=== PATIENT | male | born 1945 | race Caucasian/White ===

== ENCOUNTER 2018-08-28 10:37 | Observation (INO) ==
[2018-08-28 10:59] LABS: Basophils # 0.1 K/mm3 (0-0.2); Basophils % 0.7 % (0.1-2.0); Eosinophils # 0.1 K/mm3 (0.0-0.4); Eosinophils % 1.5 % (0.1-12.0); Hematocrit 50.2 % (42.0-52.0); Lymphocytes # 2.2 K/mm3 (0.7-4.5); Lymphocytes % 23.8 % (10-50); Mean Corpuscular HGB Conc 31.8 g/dL (31.8-35.4); Mean Corpuscular Hemoglobin 29.5 pg (27.0-31.2); Mean Corpuscular Volume 92.8 fl (80-94); Mean Platelet Volume 10.5 fl (7.4-10.4); Monocytes # 0.5 K/mm3 (0.1-1.0); Neutrophils # 6.2 K/mm3 (1.8-7.8); Neutrophils % 68.8 % (37.0-80.0); Platelet Count 222 K/mm3 (142-424); Red Blood Count 5.41 M/mm3 (4.60-6.20); Red Cell Distribution Width 12.7 % (11.5-17.5)
--- NOTE | 2018-08-28 11:08 | Emergency Department Note ---
ED Disposition Clinical Impression: Acute non-ST elevation myocardial infarction (NSTEMI), Infiltrate of lung present on chest x-ray, Hyponatremia, Hypochloremia, Elevated d-dimer, Acute renal insufficiency Chest pain Qualifiers: Chest pain type: unspecified Qualified Code(s): R07.9 - Chest pain, unspecified Type 2 diabetes mellitus with hyperglycemia Qualifiers: Diabetes mellitus intermediate card tender insulin use: without intermediate card tender use Qualified Code(s): E11.65 - Type 2 diabetes mellitus with hyperglycemia Disposition: Admitted As Inpatient Condition on Discharge: Serious (Stable) Referrals: Jarek Abad MD [Primary Care Provider] - Time of Disposition: 14:37 - Critical Care Critical Care Time: No Attestation: On 08/28/18, the high probability of a clinically significant, sudden or life threatening deterioration of the following system(s) required my full and direct attention, intervention and personal management. The time I documented below is in addition to time spent performing reported procedures but includes the following listed in this critical care notation. Medical Decision Making - Chris Inquiry Pt receiving controlled substance: No Chris was queried for this patient: No Vital Signs: 08/28/18 10:39 08/28/18 10:49 08/28/18 11:39 Temperature 98.2 F 98.2 F 98.2 F Temperature Source Oral Oral Oral Pulse Rate [Left Radial] 111 H 111 H 108 H Respiratory Rate 22 22 21 Blood Pressure [Right Arm] 126/77 126/77 125/80 Blood Pressure Mean [Right Arm] 93 93 95 Blood Pressure Source [Right Arm] Automatic Cuff Automatic Cuff Automatic Cuff Blood Pressure Position [Right Arm] Sitting Sitting Sitting 02 Sat by Pulse Oximetry 94 L 94 L 95 Oxygen Delivery Method Room Air Room Air Room Air 08/28/18 12:09 08/28/18 12:39 08/28/18 13:09 Temperature 98.3 F 98.2 F 98.3 F Temperature Source Oral Oral Oral Pulse Rate [Left Radial] 110 H 100 H 82 Respiratory Rate 22 20 21 Blood Pressure [Right Arm] 130/82 125/78 127/83 Blood Pressure Mean [Right Arm] 98 93 97 Blood Pressure Source [Right Arm] Automatic Cuff Automatic Cuff Automatic Cuff Blood Pressure Position [Right Arm] Sitting Sitting Sitting 02 Sat by Pulse Oximetry 95 94 L 95 Oxygen Delivery Method Room Air Room Air Room Air - Lab Data Lab results reviewed: Yes: I reviewed the patient's lab results. Lab Results 08/28/18 10:47: WBC 9.0, RBC 5.41, Hgb 16.0, Hct 50.2, MCV 92.8, MCH 29.5, MCHC 31.8, RDW 12.7, Plt Count 222, MPV 10.5 H, Neut % (Auto) 68.8, Lymph % (Auto) 23.8, [place] % (Auto) 5.0, Eos % (Auto) 1.5, Baso % (Auto) 0.7, Neut # (Auto) 6.2, Lymph # (Auto) 2.2, [place] # (Auto) 0.5, Eos # (Auto) 0.1, Baso # (Auto) 0.1 08/28/18 10:47: Sodium 124 L, Potassium 4.3, Chloride 87 L, Carbon Dioxide 23, Anion Gap 18.3 H, BUN 45 H, Creatinine 2.73 H, Estimated Creat Clear 38, Estimated GFR 23 L, Est GFR ( Amer) 28 L, Glucose 707 H*, Calcium 9.3, Total Bilirubin 0.9, AST 11 L, ALT 25, Alkaline Phosphatase 141 H, Troponin I < 0.02, Total Protein 8.2, Albumin 3.4, Globulin 4.8 H, Albumin/Globulin Ratio 0.7 L 08/28/18 10:47: Total Creatine Kinase 3.4 L, Amylase 39 08/28/18 10:47: D-Dimer 641 H* 08/28/18 10:47: Magnesium 2.2, CK-MB (CK-2) 1.3, Lipase 351, TSH 5.33 H 08/28/18 10:47: B-Natriuretic Peptide 39 08/28/18 10:47: Acetone Level None detected 08/28/18 12:55: Troponin I 0.14 H 08/28/18 13:15: Urine Color Yellow, Urine Appearance Clear, Urine pH 5.5, Ur Specific [place] 1.015, Urine Protein 1+, Urine Glucose (UA) 3+, Urine Ketones Trace, Urine Blood Negative, Urine Nitrate Negative, Urine Bilirubin Negative, Urine Urobilinogen 0.2, Ur Leukocyte Esterase Negative, Urine RBC 3-5, Urine WBC Occasional, Ur Squamous Epith Cells None, Urine Bacteria Trace 08/28/18 13:47: POC Glucose 579 H* 08/28/18 14:10: Random Glucose 569 H* Result diagrams: 08/28/18 10:47 08/28/18 10:47 Orders (Tests/Meds): ED MEDICATIONS Generic Name Dose Route Start Last Admin Trade Name Freq PRN Reason Stop Dose Admin Nitroglycerin/Dextrose 250 mls @ 1.5 mls/hr 08/28/18 14:15 08/28/18 14:45 Nitroglycerin 50mg/250ml D5w IV 09/27/18 14:14 5 mcg/min .Q24H NEDA 1.5 mls/hr Administration Protocol 5 MCG/MIN Heparin Sodium/Dextrose 500 mls @ 20 mls/hr 08/28/18 15:00 Heparin 25,000 Units In D5w 500ml Premix IV 09/27/18 14:59 .Q25H NEDA 1,000 UNITS/HR Metoprolol Tartrate 25 mg 08/28/18 21:00 Lopressor 25mg Tablet PO 09/27/18 20:59 BID NEDA Discontinued Medications Generic Name Dose Route Start Last Admin Trade Name Juveq PRN Reason Stop Dose Admin Aspirin 324 mg 08/28/18 10:50 08/28/18 10:54 Aspirin 81mg Chewable Tablet PO 08/28/18 10:51 324 mg ONCE ONE Administration Heparin Sodium (Porcine) 4,000 unit 08/28/18 14:50 Heparin 1,000 Units/Ml 10ml Vial (Director Home) IV 08/28/18 14:51 ONCE ONE Sodium Chloride 500 mls @ 999 mls/hr 08/28/18 11:15 08/28/18 11:21 Sod Chlor 0.9% 1000ml Bag IV 08/28/18 11:45 999 mls/hr .Q31M NEDA Administration Insulin Human Lispro 14 unit 08/28/18 11:23 08/28/18 11:29 Humalog 100 Units/Ml 3ml Vial (Ssi) IV 08/28/18 11:24 14 unit ONCE ONE Administration Insulin Human Regular 14 unit 08/28/18 14:37 Humulin R Insulin 100 Units/Ml 10ml Vial IVP 08/28/18 14:38 ONCE ONE Metoprolol Tartrate 5 mg 08/28/18 14:09 08/28/18 14:45 Metoprolol Tartrate 5mg/5ml Vial IV 08/28/18 14:10 5 mg ONCE ONE Administration Nitroglycerin 1 gm 08/28/18 11:02 08/28/18 11:21 Nitroglycerin 1 Inch Oint Udp TD 08/28/18 11:03 1 gm ONCE ONE Administration ORDERS Category Date Time Status Urinalysis-Acute [Urinalysis and Microscopic] Stat Lab 08/28/18 13:15 Ordered - ECG Data Tracing #1 I reviewed this ECG and interpreted as documented below: (EKG #1 at 10:37 showed sinus rhythm with 1st degree block, LAFB, inferior and possible anterolateral infarct changes (age undetermined) at rate of 99 BPM. EKG #2 at 14:20 showed sinus rhythm with 1st degree AV block and occasional PAC at 94 BPM.) Medical Decision Narrative: 15:15 Pt initially evaluated. EKG, PCXR and cardiac labs ordered. PCXR showed a possible posterior infiltrate. EKG showed no acute ST elevation. Pt placed on O2, given 4 ASA 81 mg PO and NTG 1" to ACW started. 14 units regular insulin ordered for elevated glucose >700 mg/dl. Pt subsequently was feeling well and pain free. All initial labs reviewed. Initial troponin normal. 2 hour troponin ordered and it was elevated at 0.14 from <0.03. 2 hour EKG also ordered. I discussed case with GERA Gardner with cardiology and they are evaluating pt in ER now. Pt case will be discussed with Dr. Mccormick as pt is no longer seeing his old PCP and has a new pt PCP appointment with another physician scheduled in the future. Pt's 2nd glucose also up so I ordered another 14 units of regular insulin. Cardiology agreed with NTG IV drip and Heparin. They did not want pt to receive Plavix. I also ordered Lopressor 5 mg IVP. Just prior to discussing elevated 2nd troponin with pt, and reassessing him, he had the nurse take him off the registered nurse cardiac telemetry and he was wanting to go home. I explained that he had a heart attack this morning, and now that he was having reoccurrence of his pain, that his AL may be progressing. I told him that I recommended he stay and be admitted for further care, or he could suffer from worsening of condition, short and/or detention disability and possibly sudden if he left. Pt has now decided to stay for treatment. Dr. Mccormick contacted and I await discussing case with him. 14:33 Case discussed with Suzanne Andrade NP for Dr. Mccormick and they will admit pt to step down unit. Chest Pain HPI - General Chief Complaint: Chest Pain Stated Complaint: Chest Pain Time Seen by Provider: 08/28/18 10:45 Mode of Arrival: Ambulatory Source of Information: Patient Limitations: No Limitations Description of Symptoms (Recalled from ER Triage Doc. by RN): Pt c/o intermitent CP x2 days that began radiating down right arm today. Pt states he has had a decrease in appetite x2 days and just doesn't feel well. Pt c/o associated SOA. - History of Present Illness HPI narrative: Pt is here in the ER for evaluation c/o chest pain. Onset 3 days ago. Pt states the pain has been coming and going. Pain is primarily right lower chest. Pain is a dull feeling. Pt states pain usually lasts about an hour and then goes away with rest. Pt has felt some SOB with the chest discomfort. No nausea or vomiting. No recent cough. Pt has NIDDM and his glucose was "high" 2 days ago. Pt also c/o feeling tired and fatigued today. No history of CAD. Last stress test over 3 years ago. No other complaints. - Related Data Home Medications Medication Instructions Recorded Confirmed Unobtainable 08/28/18 08/28/18 Allergies Allergy/AdvReac Type Severity Reaction Status Date / Time No Known Allergies Allergy Verified 08/28/18 10:49 [facility] History I have reviewed the patient's past medical history: Yes Medical History: Reports:: Diabetes Mellitus Type 2 Denies:: Diabetes Mellitus Type 1 - Social History Smoking Status: Current every day smoker Tobacco Type: cigarettes Alcohol Intake: current Alcohol Intake Frequency:: holidays/special occasions only - Psychiatric History Expresses thoughts of harming self/others: None Suicide Plan Description: No Plan ROS Obtained: Yes All systems reviewed & no additional complaints - Constitutional Constitutional: Reports system reviewed and no additional complaints, except as docu, Reports as per HPI, Reports fatigue (Onset yesterday.) - Eyes Eyes: Reports system reviewed and no additional complaints, except as docu - ENT Ears, Nose, Mouth, and Throat: Reports system reviewed and no additional complaints, except as docu - Cardiovascular Cardiovascular: Reports system reviewed and no additional complaints, except as docu, Reports as per HPI, Reports chest pain, Reports dyspnea, Denies leg edema - Respiratory Respiratory: Yes system reviewed and no additional complaints, except as docu, Yes as per HPI, Yes dyspnea (Associated with his chest pain.) - Gastrointestinal Gastrointestingal: Reports: system reviewed and no additional complaints, except as docu - Genitourinary Male Genitourinary: Reports system reviewed and no additional complaints, except as docu - Musculoskeletal Musculoskeletal: Reports system reviewed and no additional complaints, except as docu - Integumentary/Breasts Skin/Breast: Reports system reviewed and no additional complaints, except as docu - Neurologic Neurologic: Reports system reviewed and no additional complaints, except as docu - Endocrine Endocrine: Reports system reviewed and no additional complaints, except as docu, Reports increased thirst, Reports polyuria - Hematologic/Lymphatic Henatologic/Lymphatic: Reports system reviewed and no additional complaints, except as docu - Allergic/Immunologic Allergic/Immunologic: Reports system reviewed and no additional complaints, except as docu Physical Exam - General General appearance: alert, in no apparent distress - Head Head exam: atraumatic, normocephalic, normal inspection - Eye Eye exam: Present: PERRL, EOMI - ENT ENT exam: Present: mucous membranes moist, other (No otic or nasal discharge.) - Neck Neck exam: Present: trachea midline - Chest Chest inspection: Present: normal inspection, symmetric chest wall rise, tenderness ((+) mild right lower ACW discomfort on palpation.) - Respiratory Respiratory exam: Present: normal lung sounds bilaterally. Absent: respiratory distress, wheezes - Cardiovascular Cardiovascular exam: Present: tachycardia, normal heart sounds - Abdominal Exam Abdominal exam: Present: soft. Absent: distention, tenderness, guarding, rebound, rigidity, Dockery's sign, tenderness at McBurney's Point - Extremities Exam Extremities exam: Present: normal inspection, full ROM - Neurological Exam Neurological exam: Present: alert, oriented X3, CN II-XII intact - Psychiatric Psychiatric exam: Present: normal affect, normal mood - Skin Skin exam: Present: warm, dry, intact. Absent: rash
[2018-08-28 11:13] LABS: Anion Gap 18.3 mEq/L (5-15); Blood Urea Nitrogen 45 mg/dL (7-18); Calcium 9.3 mg/dL (8.5-10.1); Carbon Dioxide 23 mmol/L (21.0-32.0); Chloride 87 mmol/L (98-107); Potassium 4.3 mmoL/L (3.5-5.1); Sodium 124 mmol/L (136-145)
[2018-08-28 11:15] LABS: Glucose 707 mg/dL (74-106)
[2018-08-28 11:50] LABS: Alanine Aminotransferase 25 U/L (12-78); Albumin Level 3.4 gm/dL (3.4-5.0); Albumin/Globulin Ratio 0.7 (1.1-1.8); Aspartate Amino Transferase 11 U/L (15-37); Bilirubin,Total 0.9 mg/dL (0.2-1.0); Creatine Kinase 3.4 U/L (39-308); Globulin 4.8 gm/dl (1.3-3.2); Total Protein,Serum 8.2 gm/dL (6.4-8.2)
[2018-08-28 11:51] LABS: Alkaline Phosphatase 141 U/L (46-116)
[2018-08-28 12:29] LABS: Thyroid Stimulating Hormone 5.33 uIU/ml (0.358-3.740)
[2018-08-28 13:22] LABS: Microscopic, Urine URINE MICROSCOPIC (MICROSCOPIC)
[2018-08-28 13:32] LABS: Appearance,Urine CLEAR (Clear); Bilirubin,Urine Negative (Negative); Blood, Urine Negative (Negative); Color,Urine YELLOW (Yellow); Glucose,Urine (UA) 3+ (Negative); Ketones,Urine TRACE (Negative); Leukocyte Esterase,Urine Negative (Negative); PH,Urine 5.5 (5.0-8.5); Protein,Urine 1+ (Negative); Specific Gravity, Urine 1.015 (1.005-1.030); Urobilinogen,Urine 0.2 EU/dl (0.2)
[2018-08-28 13:52] LABS: Bacteria,Urine Trace /lpf; WBC,Urine Occasional #/hpf (0-3)
--- NOTE | 2018-08-28 14:24 | Consult Report ---
History of Present Illness Consult date: 08/28/18 Requesting physician: Jarek Abad Consult reason: chest pain Chief complaint: chest pain Additional Medical History:: 1. Diabetes mellitus, diagnosed in the mid 90s, previously insulin treated, now poorly controlled A. History of proteinuria 2. Tobacco use most of his life with a 15-20-year period where he did not smoke which ended about 4 years ago 3. Hypertension 4. Hyperlipidemia 5. Alopecia History of present illness: 73-year-old white male came to the emergency department for evaluation of chest pain. Patient relates discomfort off and on for about 3 days lasting up to an hour at a time without associated nausea or shortness of breath. Workup in the ER initially showed normal troponin with no acute changes on EKG. Second troponin returned elevated with patient having recurrent episode of chest pain. Patient's blood sugars noted to be over 700 with elevated creatinine. Cardiology consulted for evaluation. [facility] History Medical History: Reports:: Diabetes Mellitus Type 2 Denies:: Diabetes Mellitus Type 1 - *Social History Smoking Status: Current every day smoker Tobacco Type: cigarettes Alcohol Intake: current Alcohol Intake Frequency:: holidays/special occasions only - Psychiatric History Expresses thoughts of harming self/others: None Suicide Plan Description: No Plan Meds Home Medications Medication Instructions Recorded Confirmed Type Unobtainable 08/28/18 08/28/18 History Allergies Allergy/AdvReac Type Severity Reaction Status Date / Time No Known Allergies Allergy Verified 08/28/18 10:49 Review of Systems - *Cardiovascular Reports chest pain, Reports shortness of breath with activity - *Respiratory Reports shortness of breath with activity - *Gastrointestinal Denies bright, red blood in stools, Denies loose stools - *Genitourinary Denies blood in urine - *Musculoskeletal Denies joint pain, Denies back pain Exam Vital signs and Labs for Last 24 Hours: Temp Pulse Resp BP Pulse Ox 98.3 F 82 21 127/83 95 08/28/18 13:09 08/28/18 13:09 08/28/18 13:09 08/28/18 13:09 08/28/18 13:09 Laboratory Results - last 24 hr 08/28/18 10:47: WBC 9.0, RBC 5.41, Hgb 16.0, Hct 50.2, MCV 92.8, MCH 29.5, MCHC 31.8, RDW 12.7, Plt Count 222, MPV 10.5 H, Neut % (Auto) 68.8, Lymph % (Auto) 23.8, [place] % (Auto) 5.0, Eos % (Auto) 1.5, Baso % (Auto) 0.7, Neut # (Auto) 6.2, Lymph # (Auto) 2.2, [place] # (Auto) 0.5, Eos # (Auto) 0.1, Baso # (Auto) 0.1 08/28/18 10:47: Sodium 124 L, Potassium 4.3, Chloride 87 L, Carbon Dioxide 23, Anion Gap 18.3 H, BUN 45 H, Creatinine 2.73 H, Estimated Creat Clear 38, Estimated GFR 23 L, Est GFR ( Amer) 28 L, Glucose 707 H*, Calcium 9.3, Total Bilirubin 0.9, AST 11 L, ALT 25, Alkaline Phosphatase 141 H, Troponin I < 0.02, Total Protein 8.2, Albumin 3.4, Globulin 4.8 H, Albumin/Globulin Ratio 0.7 L 08/28/18 10:47: Total Creatine Kinase 3.4 L, Amylase 39 08/28/18 10:47: D-Dimer 641 H* 08/28/18 10:47: Magnesium 2.2, CK-MB (CK-2) 1.3, Lipase 351, TSH 5.33 H 08/28/18 10:47: B-Natriuretic Peptide 39 08/28/18 10:47: Acetone Level None detected 08/28/18 12:55: Troponin I 0.14 H 08/28/18 13:15: Urine Color Yellow, Urine Appearance Clear, Urine pH 5.5, Ur Specific [place] 1.015, Urine Protein 1+, Urine Glucose (UA) 3+, Urine Ketones Trace, Urine Blood Negative, Urine Nitrate Negative, Urine Bilirubin Negative, Urine Urobilinogen 0.2, Ur Leukocyte Esterase Negative, Urine RBC 3-5, Urine WBC Occasional, Ur Squamous Epith Cells None, Urine Bacteria Trace 08/28/18 13:47: POC Glucose 579 H* I & O for Last 24 hours: Intake & Output 08/26/18 08/27/18 08/28/18 08/29/18 11:59 11:59 11:59 11:59 Weight 240 lb - *Routine Neck Exam Present: supple. Absent: JVD, carotid bruit - *Routine Respiratory Exam Present: CTA bilaterally. Absent: accessory muscle use, rales, rhonchi, wheezes - *Routine Cardiovascular Exam Present: RRR. Absent: murmur, gallop, rubs - *Routine Abdominal Exam Present: soft. Absent: tenderness, distended, guarding - *Routine Extremities Exam Absent: edema, calf tenderness - *Routine Neurological Exam Present: alert, oriented X3, moving all extremities Assessment and Plan (1) Non-ST elevation MT (NSTEMI) Status: Acute Category: Medical Code(s): I21.4 - Non-ST elevation (NSTEMI) myocardial infarction (2) Diabetes mellitus type 2 in nonobese Status: Acute Category: Medical Code(s): E11.9 - Type 2 diabetes mellitus without complications (3) Tobacco use Status: Acute Category: Medical Code(s): Z72.0 - Tobacco use (4) Hypertension Status: Acute Category: Medical Code(s): I10 - Essential (primary) hypertension (5) Lipidemia Status: Acute Category: Medical Code(s): E78.5 - Hyperlipidemia, unspecified (6) CKD (chronic kidney disease) stage 4, GFR 15-29 ml/min Status: Acute Category: Medical Code(s): N18.4 - Chronic kidney disease, stage 4 (severe) - Assessment and plan all Dx Assessment and Plan for all problems:: 1. Start aspirin with 324 mg now and then 81 mg daily thereafter 2. Start IV heparin weight-based 3. Obtain an echocardiogram to evaluate left ventricular size and function and if normal then start IV fluids to see if his kidney functions will improve. 4. Would anticipate cardiac catheterization tomorrow if renal function improved. 5. Patient to have IV nitro drip started 6. Diabetes mellitus per PCP
--- NOTE | 2018-08-28 16:13 | Pharmacy Consult Notes ---
[facility] Pharmacy Heparin Dosing - Demographic Data Admission date:: 08/28/18 Date: 08/28/18 Time: 16:11 Allergies/Adverse Reactions: Allergies Allergy/AdvReac Type Severity Reaction Status Date / Time No Known Allergies Allergy Verified 08/28/18 10:49 Height: 1.83 m Weight: 108.86 kg - Indication Medication therapy:: Heparin CVA?: No Bleeding problem?: No Kidney disease?: No [place]?: No Desired PTT range:: 60-80 seconds - Labs Anticoagulation Lab Results:: 08/28/18 10:47 Hgb 16.0 Hct 50.2 Plt Count 222 - Monitoring Dose Monitor 1 Date: 08/28/18 Time: 19:50 PTT Result:: 36.9 Infusion Rate:: 20 ML/HR Comment:: INCREASE RATE TO 32 ML/HR Dose Monitor 2 Date: 08/29/18 Time: 03:45 PTT Result:: 63.6 Infusion Rate:: 32 ML/HR - Core Measures Is INR > or = 2 at discharge?: No Most Recent Labs:: Laboratory Results - last 24 hr 08/28/18 10:47: WBC 9.0, RBC 5.41, Hgb 16.0, Hct 50.2, MCV 92.8, MCH 29.5, MCHC 31.8, RDW 12.7, Plt Count 222, MPV 10.5 H, Neut % (Auto) 68.8, Lymph % (Auto) 23.8, [place] % (Auto) 5.0, Eos % (Auto) 1.5, Baso % (Auto) 0.7, Neut # (Auto) 6.2, Lymph # (Auto) 2.2, [place] # (Auto) 0.5, Eos # (Auto) 0.1, Baso # (Auto) 0.1 08/28/18 10:47: Sodium 124 L, Potassium 4.3, Chloride 87 L, Carbon Dioxide 23, Anion Gap 18.3 H, BUN 45 H, Creatinine 2.73 H, Estimated Creat Clear 38, Estimated GFR 23 L, Est GFR ( Amer) 28 L, Glucose 707 H*, Calcium 9.3, Total Bilirubin 0.9, AST 11 L, ALT 25, Alkaline Phosphatase 141 H, Troponin I < 0.02, Total Protein 8.2, Albumin 3.4, Globulin 4.8 H, Albumin/Globulin Ratio 0.7 L 08/28/18 10:47: Total Creatine Kinase 3.4 L, Amylase 39 08/28/18 10:47: D-Dimer 641 H* 08/28/18 10:47: Magnesium 2.2, CK-MB (CK-2) 1.3, Lipase 351, TSH 5.33 H 08/28/18 10:47: B-Natriuretic Peptide 39 08/28/18 10:47: Acetone Level None detected 08/28/18 10:47: APTT 26.3 08/28/18 12:55: Troponin I 0.14 H 08/28/18 13:15: Urine Color Yellow, Urine Appearance Clear, Urine pH 5.5, Ur Specific [place] 1.015, Urine Protein 1+, Urine Glucose (UA) 3+, Urine Ketones Trace, Urine Blood Negative, Urine Nitrate Negative, Urine Bilirubin Negative, Urine Urobilinogen 0.2, Ur Leukocyte Esterase Negative, Urine RBC 3-5, Urine WBC Occasional, Ur Squamous Epith Cells None, Urine Bacteria Trace 08/28/18 13:47: POC Glucose 579 H* 08/28/18 14:10: Random Glucose 569 H* If INR was < than 2.0 why was therapy stopped?: PATIENT LEFT AMA Were Heparin and Warfarin started on the same day?: No If not, why?: PATIENT LEFT AMA
--- NOTE | 2018-08-28 19:47 | History & Physical Report ---
*Admission Date: 08/28/18 *Chief complaint: chest pain, shortness of breath *History of present illness: 73 year old male with a history of HTN, hyperlipidemia, and Diabetes presented to the ED with chest pain and shortness of breath that started approx one week ago. Patient reports right sided chest pain that is isolated to the chest with no radiation accompanied by shortness of breath. He reports pain/SOA resolved with rest until today. States he woke up with chest pain this morning and could not get it to go away so he came to the ED for evaluation. In the ED, he was found to have glucose of 707, creatinine 2.7 and second troponin of 0.14. Patient is between healthcare providers and has been without his routine meds for several weeks. CP was relieved by NTG gtt. Cardiology was consulted and he was started on a Heparin gtt. Patient admitted to acute care for IV hydration and cardiac cath in the am. [facility] History I have reviewed the patient's past medical history: Yes Medical History: Reports:: Diabetes Mellitus Type 2 Denies:: Diabetes Mellitus Type 1 - *Social History Smoking Status: Current every day smoker Tobacco Type: cigarettes Alcohol Intake: current Alcohol Intake Frequency:: holidays/special occasions only - Psychiatric History Expresses thoughts of harming self/others: None Suicide Plan Description: No Plan Review of Systems - Review of Systems Review of systems:: pertinent systems reviewed and negative unless documented below - *Cardiovascular Reports chest pain, Reports shortness of breath Meds Home Medications Medication Instructions Recorded Confirmed Type Unobtainable 08/28/18 08/28/18 History Allergies Allergy/AdvReac Type Severity Reaction Status Date / Time No Known Allergies Allergy Verified 08/28/18 10:49 Exam Vital signs and Labs for Last 24 Hours: Temp Pulse Resp BP Pulse Ox 98.6 F 78 20 132/53 L 95 08/28/18 18:13 08/28/18 19:00 08/28/18 19:00 08/28/18 19:00 08/28/18 19:00 Laboratory Results - last 24 hr 08/28/18 10:47: WBC 9.0, RBC 5.41, Hgb 16.0, Hct 50.2, MCV 92.8, MCH 29.5, MCHC 31.8, RDW 12.7, Plt Count 222, MPV 10.5 H, Neut % (Auto) 68.8, Lymph % (Auto) 23.8, [place] % (Auto) 5.0, Eos % (Auto) 1.5, Baso % (Auto) 0.7, Neut # (Auto) 6.2, Lymph # (Auto) 2.2, [place] # (Auto) 0.5, Eos # (Auto) 0.1, Baso # (Auto) 0.1 08/28/18 10:47: Sodium 124 L, Potassium 4.3, Chloride 87 L, Carbon Dioxide 23, Anion Gap 18.3 H, BUN 45 H, Creatinine 2.73 H, Estimated Creat Clear 38, Estimated GFR 23 L, Est GFR ( Amer) 28 L, Glucose 707 H*, Calcium 9.3, Total Bilirubin 0.9, AST 11 L, ALT 25, Alkaline Phosphatase 141 H, Troponin I < 0.02, Total Protein 8.2, Albumin 3.4, Globulin 4.8 H, Albumin/Globulin Ratio 0.7 L 08/28/18 10:47: Total Creatine Kinase 3.4 L, Amylase 39 08/28/18 10:47: D-Dimer 641 H* 08/28/18 10:47: Magnesium 2.2, CK-MB (CK-2) 1.3, Lipase 351, TSH 5.33 H 08/28/18 10:47: B-Natriuretic Peptide 39 08/28/18 10:47: Acetone Level None detected 08/28/18 10:47: APTT 26.3 08/28/18 12:55: Troponin I 0.14 H 08/28/18 13:15: Urine Color Yellow, Urine Appearance Clear, Urine pH 5.5, Ur Specific [place] 1.015, Urine Protein 1+, Urine Glucose (UA) 3+, Urine Ketones Trace, Urine Blood Negative, Urine Nitrate Negative, Urine Bilirubin Negative, Urine Urobilinogen 0.2, Ur Leukocyte Esterase Negative, Urine RBC 3-5, Urine WBC Occasional, Ur Squamous Epith Cells None, Urine Bacteria Trace 08/28/18 13:47: POC Glucose 579 H* 08/28/18 14:10: Random Glucose 569 H* 08/28/18 18:06: Troponin I 2.37 H I & O for Last 24 hours: Intake & Output 08/26/18 08/27/18 08/28/18 08/29/18 11:59 11:59 11:59 11:59 Intake Total 2520 / 2520 Balance 2520 / 2520 Weight 240 lb 205 lb 4 oz Narrative: Alert and oriented x3. Rate and rhythm regular. NSR on monitor. No LE edema. Lung sounds clear and equal. No JVD. No Carotid bruit. ENT exam reveals poor dentition. Abdomen soft and nontender. No acute neuro deficits. Skin pink, warm and dry Assessment and Plan (1) Non-ST elevation [place] (NSTEMI) Current visit: Yes Status: Acute Category: Medical Code(s): I21.4 - Non-ST elevation (NSTEMI) myocardial infarction (2) Diabetes mellitus type 2 in nonobese Current visit: Yes Status: Acute Category: Medical Code(s): E11.9 - Type 2 diabetes mellitus without complications (3) Tobacco use Current visit: Yes Status: Acute Category: Medical Code(s): Z72.0 - Tobacco use (4) Hypertension Current visit: Yes Status: Acute Category: Medical Code(s): I10 - Essential (primary) hypertension (5) Lipidemia Current visit: Yes Status: Acute Category: Medical Code(s): E78.5 - Hyperlipidemia, unspecified (6) CKD (chronic kidney disease) stage 4, GFR 15-29 ml/min Current visit: Yes Status: Acute Category: Medical Code(s): N18.4 - Chronic kidney disease, stage 4 (severe) - Assessment and plan all Dx Assessment and Plan for all problems:: Admit to step down unit for monitoring. Preliminary Echo showed EF >50%. Aggressive IV hydration and recheck BMP in the am. FSBS with high sliding scale insulin. NPO after midnight for possible coronary angiogram in the am.
[2018-08-29 03:39] LABS: Basophils # 0.1 K/mm3 (0-0.2); Basophils % 0.6 % (0.1-2.0); Eosinophils # 0.2 K/mm3 (0.0-0.4); Eosinophils % 2.1 % (0.1-12.0); Hematocrit 40.7 % (42.0-52.0); Lymphocytes # 2.5 K/mm3 (0.7-4.5); Lymphocytes % 30.5 % (10-50); Mean Corpuscular HGB Conc 33.9 g/dL (31.8-35.4); Mean Corpuscular Hemoglobin 29.7 pg (27.0-31.2); Mean Corpuscular Volume 87.7 fl (80-94); Mean Platelet Volume 10.6 fl (7.4-10.4); Monocytes # 0.5 K/mm3 (0.1-1.0); Monocytes % 6.3 % (1.7-9.3); Neutrophils % 60.5 % (37.0-80.0); Platelet Count 151 K/mm3 (142-424); Red Blood Count 4.64 M/mm3 (4.60-6.20); Red Cell Distribution Width 12.8 % (11.5-17.5); White Blood Count 8.2 K/mm3 (4.8-10.8)
[2018-08-29 03:46] LABS: Prothrombin Time 10.3 seconds (9.4-11.8)
[2018-08-29 03:50] LABS: Activated Partial Thrombo Time 63.6 seconds (23.6-34.0); Anion Gap 14.3 mEq/L (5-15); Potassium 3.3 mmoL/L (3.5-5.1)
[2018-08-29 03:58] LABS: Calcium 8.2 mg/dL (8.5-10.1)
--- NOTE | 2018-08-29 07:54 | Pharmacy Consult Notes ---
[facility] Pharmacy VTE Monitoring - Patient Demographics Admission date: 08/29/18 Report Date: 08/29/18 Time: 07:53 Allergies/Adverse Reactions: Patient Allergies No Known Allergies Allergy (Verified 08/28/18 10:49) Height: 1.83 m Weight: 94.801 kg Patient Problems: Current Active Problems Non-ST elevation [place] (NSTEMI) (Acute) Diabetes mellitus type 2 in nonobese (Acute) Tobacco use (Acute) Hypertension (Acute) Lipidemia (Acute) CKD (chronic kidney disease) stage 4, GFR 15-29 ml/min (Acute) Acute non-ST elevation myocardial infarction (NSTEMI) (Acute) Chest pain (Acute) Infiltrate of lung present on chest x-ray (Acute) Hyponatremia (Acute) Hypochloremia (Acute) Elevated d-dimer (Acute) Type 2 diabetes mellitus with hyperglycemia (Acute) Acute renal insufficiency (Acute) - VTE Risk Labs: VTE Related Lab Results Hgb 14.0 g/dL (14.1-18.0) L D 08/29/18 03:30 Hct 40.7 % (42.0-52.0) L 08/29/18 03:30 Plt Count 151 K/mm3 (142-424) D 08/29/18 03:30 PT 10.3 seconds (9.4-11.8) 08/29/18 03:30 INR 1.00 (0.9-1.1) 08/29/18 03:30 APTT 63.6 seconds (23.6-34.0) H* D 08/29/18 03:30 BUN 38 mg/dL (7-18) H 08/29/18 03:30 Creatinine 1.81 mg/dL (0.70-1.30) H D 08/29/18 03:30 Estimated Creat Clear 49 mL/min (50-200) 08/29/18 03:30 Was VTE Risk Assessment Performed: Yes VTE Score: 2 VTE Risk Level: Low Risk Clinical Trial Participant: No - Prophylaxis VTE Prophylaxis Ordered?: Yes Types of VTE Prophylaxis: TEDS Knee High, Pharmacological Pharmacologic Type: Heparin (ON HEPARIN DRIP)
--- NOTE | 2018-08-29 08:43 | Progress Note ---
Internal Medicine - PN: Subj *Date: 08/29/18 *Time: 08:40 Interval history: Patient overnight has been noncompliant with nursing instructions, has refused vital signs and blood draws. He states that he is not sure that he had a heart attack. He reports continuing pain across the right anterior chest. Exam Vital signs and Labs for Last 24 Hours: Temp Pulse Resp BP Pulse Ox 97.9 F 71 16 120/64 99 08/28/18 23:48 08/29/18 07:00 08/29/18 07:00 08/29/18 07:00 08/29/18 07:00 Laboratory Results - last 24 hr 08/28/18 10:47: WBC 9.0, RBC 5.41, Hgb 16.0, Hct 50.2, MCV 92.8, MCH 29.5, MCHC 31.8, RDW 12.7, Plt Count 222, MPV 10.5 H, Neut % (Auto) 68.8, Lymph % (Auto) 23.8, [place] % (Auto) 5.0, Eos % (Auto) 1.5, Baso % (Auto) 0.7, Neut # (Auto) 6.2, Lymph # (Auto) 2.2, [place] # (Auto) 0.5, Eos # (Auto) 0.1, Baso # (Auto) 0.1 08/28/18 10:47: Sodium 124 L, Potassium 4.3, Chloride 87 L, Carbon Dioxide 23, Anion Gap 18.3 H, BUN 45 H, Creatinine 2.73 H, Estimated Creat Clear 38, Estimated GFR 23 L, Est GFR ( Amer) 28 L, Glucose 707 H*, Calcium 9.3, Total Bilirubin 0.9, AST 11 L, ALT 25, Alkaline Phosphatase 141 H, Troponin I < 0.02, Total Protein 8.2, Albumin 3.4, Globulin 4.8 H, Albumin/Globulin Ratio 0.7 L 08/28/18 10:47: Total Creatine Kinase 3.4 L, Amylase 39 08/28/18 10:47: D-Dimer 641 H* 08/28/18 10:47: Magnesium 2.2, CK-MB (CK-2) 1.3, Lipase 351, TSH 5.33 H 08/28/18 10:47: B-Natriuretic Peptide 39 08/28/18 10:47: Acetone Level None detected 08/28/18 10:47: APTT 26.3 08/28/18 12:55: Troponin I 0.14 H 08/28/18 13:15: Urine Color Yellow, Urine Appearance Clear, Urine pH 5.5, Ur Specific [place] 1.015, Urine Protein 1+, Urine Glucose (UA) 3+, Urine Ketones Trace, Urine Blood Negative, Urine Nitrate Negative, Urine Bilirubin Negative, Urine Urobilinogen 0.2, Ur Leukocyte Esterase Negative, Urine RBC 3-5, Urine WBC Occasional, Ur Squamous Epith Cells None, Urine Bacteria Trace 08/28/18 13:47: POC Glucose 579 H* 08/28/18 14:10: Random Glucose 569 H* 08/28/18 18:06: Troponin I 2.37 H 08/28/18 19:33: POC Glucose 435 H* 08/28/18 19:50: APTT 36.9 H D 08/29/18 03:30: WBC 8.2, RBC 4.64, Hgb 14.0 L D, Hct 40.7 L, MCV 87.7, MCH 29.7, MCHC 33.9, RDW 12.8, Plt Count 151 D, MPV 10.6 H, Neut % (Auto) 60.5, Lymph % (Auto) 30.5, [place] % (Auto) 6.3, Eos % (Auto) 2.1, Baso % (Auto) 0.6, Neut # (Auto) 5.0, Lymph # (Auto) 2.5, [place] # (Auto) 0.5, Eos # (Auto) 0.2, Baso # (Auto) 0.1 08/29/18 03:30: Sodium 135 L, Potassium 3.3 L D, Chloride 102, Carbon Dioxide 22, Anion Gap 14.3, BUN 38 H, Creatinine 1.81 H D, Estimated Creat Clear 49, Estimated GFR 37 L, Est GFR ( Amer) 45 L D, Glucose 132 H D, Calcium 8.2 L D 08/29/18 03:30: PT 10.3, INR 1.00, APTT 63.6 H* D 08/29/18 05:50: POC Glucose 168 H I & O for Last 24 hours: Intake & Output 12/0408/27/18 08/28/18 08/29/18 11:59 11:59 11:59 11:59 Intake Total 4435 / 4435 Output Total 350 / 350 Balance 4085 / 4085 Weight 240 lb 209 lb Narrative: Patient is alert. Sitting in the side of the bed, wearing his clothes in which he arrived at the emergency room. He states that he is "about ready to leave here." I had a very extensive discussion with him about his test results, lab results and the fact that his medical conditions were dangerously [id number] and that given his high likelihood of cardiac disease he required left heart catheterization. He requested "a second opinion." I informed him that the emergency room physician, myself and the decorating consultant service all agreed that this was indicated. Examination revealed a somewhat angry sounding white male who appeared his stated age. ENT exam was clear, no JVD. His lungs are clear and his heart rate is regular without murmurs she has no edema. Abdomen is soft. Assessment and Plan (1) Non-ST elevation [place] (NSTEMI) Current visit: Yes Status: Acute Category: Medical Code(s): I21.4 - Non-ST elevation (NSTEMI) myocardial infarction (2) Diabetes mellitus type 2 in nonobese Current visit: Yes Status: Acute Category: Medical Code(s): E11.9 - Type 2 diabetes mellitus without complications (3) Tobacco use Current visit: Yes Status: Acute Category: Medical Code(s): Z72.0 - Tobacco use (4) Hypertension Current visit: Yes Status: Acute Category: Medical Code(s): I10 - Essential (primary) hypertension (5) Lipidemia Current visit: Yes Status: Acute Category: Medical Code(s): E78.5 - Hyperlipidemia, unspecified (6) CKD (chronic kidney disease) stage 4, GFR 15-29 ml/min Current visit: Yes Status: Acute Category: Medical Code(s): N18.4 - Chronic kidney disease, stage 4 (severe) - Assessment and plan all Dx Assessment and Plan for all problems:: Patient has multiple medical problems that require serious and urgent intervention and its indicated to perform left heart catheterization. However, the patient does not wish this done and becomes very angry and belligerent when the need for this is discussed. He plans to leave AMA. Strongly cautioned him that this could result in permanent injury, or chronic/permanent incapacity. He states that he understands these risks but still plans to leave. I will have cardiology service come by one more time to discuss the case with him.
--- NOTE | 2018-08-29 09:37 | Cardiology Report ---
PROCEDURE: 2-D M-mode and color Doppler study INDICATIONS FOR THE TEST: Chest pain+ COPD Heart Murmur Tobacco Smoking+ Palpitations Fatigue Syncope Edema Hypertension+Diabetes Mellitus+ Rheumatic Fever SOB+[place] Obesity Hyperlipidemia+ Family History HD Additional History ALOPECIA, CKD, ARRHYTHMIA PATIENT INFORMATION HEIGHT: 73 WEIGHT:240 GENDER: Male B/P:120/73 2-D/M-MODE INTERPRETATION: 2-D MEASUREMENTS OBSERVED VALUES IN CMS Right Ventricular Dimension (RVDd) 2.9 Interventricular Septum (Thickness)(IVsd) 2.1 Left Ventricular Internal Dimensions(LVIDd) 4.0 Left Ventricular Posterior Wall (Thickness)(LVPWd) 1.4 Aortic Root 3.6 Aortic Cusp Separation 2.1 Left Atrial Dimensions (LAD) 4.7 2D 1. Technically difficult study because of the patient's factor and poor acoustic windows 2. The left atrium is mildly enlarged, left ventricle is normal size, there is mild concentric left ventricular hypertrophy, visually estimated ejection fraction of 50% with no regional wall motion abnormality. 3. The right atrium and right ventricle are mildly enlarged with normal contractility. 4. The aortic valve is minimally thickened and fibrosed. 5. The mitral valve has mitral annular calcification, leaflets are minimally thickened and calcified., There is no mitral stenosis. 6. The tricuspid valve is grossly normal. 7. No significant pericardial effusion noted 8. The pulmonic valve is poorly visualized. DOPPLER INTERROGATION: Doppler interrogation of the aortic, mitral and tricuspid valvular presence of mild mitral and tricuspid regurgitation, tricuspid regurgitation jet velocity is inadequate for calculation of the right ventricular systolic pressure, diastolic parameters are inconclusive. CONCLUSION: 1. Technically difficult study because of the patient's factor and poor acoustic windows 2. Mildly enlarged left atrium, normal left ventricular size, mild concentric left ventricular hypertrophy, visually estimated ejection fraction 50% with no regional wall motion abnormality, diastolic parameters are inconclusive. 3. Mild mitral and tricuspid regurgitation 4. No significant pericardial effusion noted.
--- NOTE | 2018-08-29 10:13 | Progress Note ---
Subjective Date: 08/29/18 Time: 08:30 Principal diagnosis: NSTEMI, DKA Interval history: 1. NSTEMI a. Elevated troponin 2.37. (08/28/18) 2. DKA a. Blood sugar over 700 upon admission (08/28/18) b. Poorly controlled diabetes. c. Patient is on oral glycemics. 3. History of tobacco abuse. a. Quit 4 years ago. b. Smoked 1 pack or more 15-20 years. 4. Hypertension 5. Noncompliant with medications Upon cardiac evaluation this morning, pt refused assessment and evaluation. Dr. Dent present. Patient verbalized he wanted to leave AGAINST MEDICAL ADVICE. Discussed with patient the risk and benefits of having a left heart catheterization performed this morning. Patient stated he did not have chest pain nor shortness of breath. Patient stated he was aware of how serious his condition was but wanted to get a second opinion. Patient requested his IVs to be removed. Patient refused to sign AMA form. Encouraged patient to return to the emergency room if he began developing chest pain, shortness of breath or feeling well. This patient was not assessed nor evaluated per pt requested. Exam Vital signs and Labs for Last 24 Hours: Temp Pulse Resp BP Pulse Ox 98.8 F 71 18 120/64 99 08/29/18 08:00 08/29/18 07:00 08/29/18 08:00 08/29/18 07:00 08/29/18 07:00 Laboratory Results - last 24 hr 08/28/18 10:47: WBC 9.0, RBC 5.41, Hgb 16.0, Hct 50.2, MCV 92.8, MCH 29.5, MCHC 31.8, RDW 12.7, Plt Count 222, MPV 10.5 H, Neut % (Auto) 68.8, Lymph % (Auto) 23.8, [place] % (Auto) 5.0, Eos % (Auto) 1.5, Baso % (Auto) 0.7, Neut # (Auto) 6.2, Lymph # (Auto) 2.2, [place] # (Auto) 0.5, Eos # (Auto) 0.1, Baso # (Auto) 0.1 08/28/18 10:47: Sodium 124 L, Potassium 4.3, Chloride 87 L, Carbon Dioxide 23, Anion Gap 18.3 H, BUN 45 H, Creatinine 2.73 H, Estimated Creat Clear 38, Estimated GFR 23 L, Est GFR ( Amer) 28 L, Glucose 707 H*, Calcium 9.3, Total Bilirubin 0.9, AST 11 L, ALT 25, Alkaline Phosphatase 141 H, Troponin I < 0.02, Total Protein 8.2, Albumin 3.4, Globulin 4.8 H, Albumin/Globulin Ratio 0.7 L 08/28/18 10:47: Total Creatine Kinase 3.4 L, Amylase 39 08/28/18 10:47: D-Dimer 641 H* 08/28/18 10:47: Magnesium 2.2, CK-MB (CK-2) 1.3, Lipase 351, TSH 5.33 H 08/28/18 10:47: B-Natriuretic Peptide 39 08/28/18 10:47: Acetone Level None detected 08/28/18 10:47: APTT 26.3 08/28/18 12:55: Troponin I 0.14 H 08/28/18 13:15: Urine Color Yellow, Urine Appearance Clear, Urine pH 5.5, Ur Specific [place] 1.015, Urine Protein 1+, Urine Glucose (UA) 3+, Urine Ketones Trace, Urine Blood Negative, Urine Nitrate Negative, Urine Bilirubin Negative, Urine Urobilinogen 0.2, Ur Leukocyte Esterase Negative, Urine RBC 3-5, Urine WBC Occasional, Ur Squamous Epith Cells None, Urine Bacteria Trace 08/28/18 13:47: POC Glucose 579 H* 08/28/18 14:10: Random Glucose 569 H* 08/28/18 18:06: Troponin I 2.37 H 08/28/18 19:33: POC Glucose 435 H* 08/28/18 19:50: APTT 36.9 H D 08/29/18 03:30: WBC 8.2, RBC 4.64, Hgb 14.0 L D, Hct 40.7 L, MCV 87.7, MCH 29.7, MCHC 33.9, RDW 12.8, Plt Count 151 D, MPV 10.6 H, Neut % (Auto) 60.5, Lymph % (Auto) 30.5, [place] % (Auto) 6.3, Eos % (Auto) 2.1, Baso % (Auto) 0.6, Neut # (Auto) 5.0, Lymph # (Auto) 2.5, [place] # (Auto) 0.5, Eos # (Auto) 0.2, Baso # (Auto) 0.1 08/29/18 03:30: Sodium 135 L, Potassium 3.3 L D, Chloride 102, Carbon Dioxide 22, Anion Gap 14.3, BUN 38 H, Creatinine 1.81 H D, Estimated Creat Clear 49, Estimated GFR 37 L, Est GFR ( Amer) 45 L D, Glucose 132 H D, Calcium 8.2 L D 08/29/18 03:30: PT 10.3, INR 1.00, APTT 63.6 H* D 08/29/18 05:50: POC Glucose 168 H I & O for Last 24 hours: Intake & Output 08/26/18 08/27/18 08/28/18 08/29/18 23:59 23:59 23:59 23:59 Intake Total 2742 / 2742 1693 / 1693 Output Total 350 / 350 Balance 2392 / 2392 1693 / 1693 Weight 205 lb 4 oz 209 lb - Constitutional no acute distress Progress Note: A&P (1) Non-ST elevation [place] (NSTEMI) Start date: 08/29/18 Status: Acute Current Visit: Yes (2) Diabetes mellitus type 2 in nonobese Status: Acute Current Visit: Yes (3) Tobacco use Status: Acute Current Visit: Yes (4) Hypertension Status: Acute Current Visit: Yes (5) Lipidemia Status: Acute Current Visit: Yes (6) CKD (chronic kidney disease) stage 4, GFR 15-29 ml/min Status: Acute Current Visit: Yes Assessment and Plan for All Diagnoses:: Plan: 1. Patient requesting to leave AMA. 2. Encouraged patient to return to the emergency room as soon as possible if he started developing symptoms such as chest pain or shortness of breath. 3. Asked patient to sign AMA form.
--- NOTE | 2018-08-29 13:39 | Discharge Summary ---
General - General Admission date:: 08/28/18 Discharge date: 08/29/18 HPI HPI: 73 year old male with a history of HTN, hyperlipidemia, and Diabetes presented to the ED with chest pain and shortness of breath that started approx one week ago. Patient reports right sided chest pain that is isolated to the chest with no radiation accompanied by shortness of breath. He reports pain/SOA resolved with rest until today. States he woke up with chest pain this morning and could not get it to go away so he came to the ED for evaluation. In the ED, he was found to have glucose of 707, creatinine 2.7 and second troponin of 0.14. Patient is between healthcare providers and has been without his routine meds for several weeks. CP was relieved by NTG gtt. Cardiology was consulted and he was started on a Heparin gtt. Patient admitted to acute care for IV hydration and cardiac cath in the am. Hospital Course Hospital Course: Patient was admitted, ruled in for myocardial infarction, significant electrolyte abnormalities noted and significant renal dysfunction noted. Through the night however, patient became increasingly belligerent about his care and began to refuse vital signs and fingersticks and lab draws. This morning I discussed his case, and went through the rationale that caused him to come to the hospital voluntarily and caused him to be [id number] now caused us to strongly recommend left heart catheterization for myocardial infarction and evidence of significant heart disease. Patient became argumentative, rude and wanted "a second opinion." I informed him that 3 separate physicians had seen him and had concurred that he needed evaluation angiographically. He disagreed with this. He then voiced his desire to leave AMA. I instructed him that leaving AMA would be significantly harmful to his health, and carried the risk of recurrent heart attack, and perhaps . He he stated that he wished to leave anyway. Cardiology service saw patient, he repeated this opinion to them them and refused to sign any kind of AMA discharge form, removed his intravenous catheters and left the hospital. Because of his AMA discharge no follow-up arrangements, prescriptions or other items were planned. Objective Vital signs: Temp Pulse Resp BP Pulse Ox 98.8 F 70 18 120/64 99 08/29/18 08:00 08/29/18 08:00 08/29/18 08:00 08/29/18 07:00 08/29/18 07:00 Narrative: Please see my notes from this morning regarding his physical exam. Results Labs on day of discharge: Labs from last 24 hours 08/29/18 08/29/18 08/29/18 05:50 03:30 03:30 WBC RBC Hgb Hct MCV MCH MCHC RDW Plt Count MPV Neut % (Auto) Lymph % (Auto) [place] % (Auto) Eos % (Auto) Baso % (Auto) Neut # (Auto) Lymph # (Auto) [place] # (Auto) Eos # (Auto) Baso # (Auto) PT 10.3 INR 1.00 APTT 63.6 H* D Sodium 135 L Potassium 3.3 L D Chloride 102 Carbon Dioxide 22 Anion Gap 14.3 BUN 38 H Creatinine 1.81 H D Estimated Creat Clear 49 Estimated GFR 37 L Est GFR ( Amer) 45 L D Glucose 132 H D POC Glucose 168 H Random Glucose Calcium 8.2 L D Troponin I Urine Color Urine Appearance Urine pH Ur Specific [place] Urine Protein Urine Glucose (UA) Urine Ketones Urine Blood Urine Nitrate Urine Bilirubin Urine Urobilinogen Ur Leukocyte Esterase Urine RBC Urine WBC Ur Squamous Epith Cells Urine Bacteria 08/29/18 08/28/18 08/28/18 03:30 19:50 19:33 WBC 8.2 RBC 4.64 Hgb 14.0 L D Hct 40.7 L MCV 87.7 MCH 29.7 MCHC 33.9 RDW 12.8 Plt Count 151 D MPV 10.6 H Neut % (Auto) 60.5 Lymph % (Auto) 30.5 [place] % (Auto) 6.3 Eos % (Auto) 2.1 Baso % (Auto) 0.6 Neut # (Auto) 5.0 Lymph # (Auto) 2.5 [place] # (Auto) 0.5 Eos # (Auto) 0.2 Baso # (Auto) 0.1 PT INR APTT 36.9 H D Sodium Potassium Chloride Carbon Dioxide Anion Gap BUN Creatinine Estimated Creat Clear Estimated GFR Est GFR ( Amer) Glucose POC Glucose 435 H* Random Glucose Calcium Troponin I Urine Color Urine Appearance Urine pH Ur Specific [place] Urine Protein Urine Glucose (UA) Urine Ketones Urine Blood Urine Nitrate Urine Bilirubin Urine Urobilinogen Ur Leukocyte Esterase Urine RBC Urine WBC Ur Squamous Epith Cells Urine Bacteria 08/28/18 08/28/18 08/28/18 18:06 14:10 13:47 WBC RBC Hgb Hct MCV MCH MCHC RDW Plt Count MPV Neut % (Auto) Lymph % (Auto) [place] % (Auto) Eos % (Auto) Baso % (Auto) Neut # (Auto) Lymph # (Auto) [place] # (Auto) Eos # (Auto) Baso # (Auto) PT INR APTT Sodium Potassium Chloride Carbon Dioxide Anion Gap BUN Creatinine Estimated Creat Clear Estimated GFR Est GFR ( Amer) Glucose POC Glucose 579 H* Random Glucose 569 H* Calcium Troponin I 2.37 H Urine Color Urine Appearance Urine pH Ur Specific [place] Urine Protein Urine Glucose (UA) Urine Ketones Urine Blood Urine Nitrate Urine Bilirubin Urine Urobilinogen Ur Leukocyte Esterase Urine RBC Urine WBC Ur Squamous Epith Cells Urine Bacteria 08/28/18 08/28/18 13:15 10:47 WBC RBC Hgb Hct MCV MCH MCHC RDW Plt Count MPV Neut % (Auto) Lymph % (Auto) [place] % (Auto) Eos % (Auto) Baso % (Auto) Neut # (Auto) Lymph # (Auto) [place] # (Auto) Eos # (Auto) Baso # (Auto) PT INR APTT 26.3 Sodium Potassium Chloride Carbon Dioxide Anion Gap BUN Creatinine Estimated Creat Clear Estimated GFR Est GFR ( Amer) Glucose POC Glucose Random Glucose Calcium Troponin I Urine Color Yellow Urine Appearance Clear Urine pH 5.5 Ur Specific [place] 1.015 Urine Protein 1+ Urine Glucose (UA) 3+ Urine Ketones Trace Urine Blood Negative Urine Nitrate Negative Urine Bilirubin Negative Urine Urobilinogen 0.2 Ur Leukocyte Esterase Negative Urine RBC 3-5 Urine WBC Occasional Ur Squamous Epith Cells None Urine Bacteria Trace DS: Diagnosis - Discharge Diagnosis (1) Non-ST elevation NE (NSTEMI) Status: Acute (2) Diabetes mellitus type 2 in nonobese Status: Acute (3) Tobacco use Status: Acute (4) Hypertension Status: Acute (5) Lipidemia Status: Acute (6) CKD (chronic kidney disease) stage 4, GFR 15-29 ml/min Status: Acute Discharge Plan - Patient Discharge Instructions ACTIVITY: Other DIET: other - Follow up Plan Disposition: Left Against Medical Advice Home Medications: Home Medications Medication Instructions Recorded Confirmed Type Unobtainable 08/28/18 08/28/18 History Prescriptions/Medication Reconciliation: No Action Unobtainable
== END 2018-08-29 08:45 | disposition left against medical advice (07) ==
LOC: ER 10:37 → ICU 15:56 → INTOOBSV 16:21 → ICU 16:22
PROVIDERS: ADMIT Internal Medicine Adolescent Medicine; ATTEND Internal Medicine Adolescent Medicine

== ENCOUNTER → 2019-11-24 13:23 | Outpatient (CLI) | payer MEDICARE, SELFPAY ==
--- NOTE | 2019-11-24 13:29 | XR_ITS ---
PROCEDURE: XR ANKLE WT BEARING RT MIN 3V CLINICAL INDICATION: Ankle Pain COMPARISON: No exams were available for comparison FINDINGS: No fracture or dislocation. No lytic or blastic change. The joint space is well preserved. The ankle mortise is preserved. The talar dome has an unremarkable appearance. IMPRESSION: No acute findings. Dictated by: Demario Diehl MD 11/24/2019 17:45 Electronically signed by Demario Diehl MD in [place] 11/24/2019 17:45
--- NOTE | 2019-11-24 13:29 | XR_ITS ---
PROCEDURE: XR FOOT WT BEARING RT 3V CLINICAL INDICATION: Foot pain COMPARISON: No exams were available for comparison FINDINGS: No fracture or dislocation. No lytic or blastic change. There is normal mineralization. Osteoarthritic changes are present at the navicular cuneiform joint with some subarticular lucency at the distal aspect of the navicular along with some bony spurring. There are mild degenerative changes of the tarsal bones and there is mild pes planus. Other findings:None. 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
--- NOTE | 2019-11-24 13:29 | XR_ITS ---
PROCEDURE: XR ANKLE WT BEARING LT MIN 3V CLINICAL INDICATION: Ankle Pain COMPARISON: No exams were available for comparison FINDINGS: There are mild osteoarthritic changes of the medial malleolus and lateral aspect of the talus. There is some minimal spurring along the anterior distal tibia. The talar dome has an unremarkable appearance in the ankle mortise is preserved. There is an old fracture versus accessory center of ossification at the tip of the fibula IMPRESSION: Degenerative changes, no acute finding Dictated by: Demario Diehl MD 11/24/2019 17:43 Electronically signed by Demario Diehl MD in [place] 11/24/2019 17:43
--- NOTE | 2019-11-24 13:29 | XR_ITS ---
PROCEDURE: XR FOOT WT BEARING LT 3V CLINICAL INDICATION: Foot pain COMPARISON: No exams were available for comparison FINDINGS: No fracture or dislocation. No lytic or blastic change. There is normal mineralization. The joint spaces are well-preserved. No significant degenerative/arthritic changes. No erosive changes evident. Other findings:Mild pes planus. Mildly prominent calcaneal spur IMPRESSION: Mild pes planus with mildly prominent calcaneal spur Dictated by: Demario Diehl MD 11/24/2019 17:46 Electronically signed by Demario Diehl MD in [place] 11/24/2019 17:46
== END ==
PROVIDERS: PCP Family Medicine; Visit Provider Podiatrist
DX: M79.672 Pain in left foot (principal); M79.671 Pain in right foot; M25.572 Pain in left ankle and joints of left foot; M25.571 Pain in right ankle and joints of right foot
CPT/HCPCS: 73610; 73630

== ENCOUNTER → 2020-03-24 09:54 | Outpatient (POV) | payer MEDICARE, SELFPAY | PROVIDERS: Visit Provider Audiologist | DX: Z00.00 Encounter for general adult medical examination without abnormal findings (principal) ==

== ENCOUNTER → 2020-07-14 10:50 | Outpatient (CLI) | payer MEDICARE, SELFPAY ==
--- NOTE | 2020-07-14 10:59 | XR_ITS ---
PROCEDURE: XR SHOULDER LT MIN 2V CLINICAL INDICATION: ACUTE PAIN OF LT SHOULDER, INJURY OF LT ROATOR CUFF, FALL Left shoulder pain with limited range of motion COMPARISON: No exams were available for comparison FINDINGS: No fracture or dislocation. No lytic or blastic change. There is normal mineralization. There are mild osteoarthritic changes of the glenohumeral joint. There is a downsloping acromion with subacromial stenosis which may result in impingement symptomatology upon the rotator cuff may be better evaluated with MRI if clinically warranted. Other findings:None. IMPRESSION: Downsloping acromion with subacromial stenosis and mild osteoarthritic change. Dictated by: Demario Diehl MD 07/14/2020 14:31 Demario Diehl MD in [place] 07/14/2020 14:31
== END ==
PROVIDERS: PCP Family Medicine; Visit Provider Family Medicine
DX: M25.512 Pain in left shoulder (principal); S46.002A Unspecified injury of muscle(s) and tendon(s) of the rotator cuff of left shoulder, initial encounter; W19.XXXA Unspecified fall, initial encounter
CPT/HCPCS: 73030

== ENCOUNTER → 2020-09-14 08:40 | Outpatient (CLI) | payer MEDICARE, SELFPAY ==
--- NOTE | 2020-09-14 08:53 | MR_ITS ---
PROCEDURE: MR HEAD/BRAIN WO CON CLINICAL INDICATION: CVA Loss of use of the left hand COMPARISON: No exams were available for comparison TECHNIQUE: Routine multiplanar multi echo sequences are performed without gadolinium enhancement. FINDINGS: There is abnormal increased T2 signal involving the right temporoparietal region with a somewhat gyriform pattern. There is some increased diffusion signal at this area which is felt to be T2 shine through to as this shows increased signal on the ADC images. There is also some gyriform area of decreased diffusion signal which shows decreased signal on the T2 images and on the flash hemo images with slight increased signal on the T1 weighted images consistent with areas of hemorrhage within the infarction. This involves the junction of the posterior temporal and parietal lobe. No midline shift or mass effect is evident. There are scattered areas of periventricular and subcortical T2 white matter hyperintensity consistent with ischemic gliotic change from microvascular disease. There is an old lacunar infarction in the left thalamus. The cerebellopontine angles, cerebellum, and brainstem are unremarkable. There is fluid in the right mastoid sinus and within a pneumatized in eyes petrous bone on the right. No sinus air-fluid level. The pituitary, optic chiasm, corpus callosum, and craniocervical junction have an unremarkable appearance. IMPRESSION: Subacute infarction of the right temporal parietal junction with a hemorrhagic component Nonspecific periventricular T2 white matter hyperintensities which may be related to ischemic gliotic change from microvascular disease. Old small lacunar infarction of the thalamus noted on the left. Right mastoid sinus disease as well as fluid within a pneumatized right petrous bone the Dictated by: Demario Diehl MD 09/14/2020 16:44 Demario Diehl MD in [place] 09/14/2020 16:44
[2020-09-14 09:03] LABS: Blood Urea Nitrogen 34 mg/dl (9-20); Estimated Glomerular Filt Rate 23 ml/min (>60); GFR (African American) 28 ML/MIN (>60)
--- NOTE | 2020-09-14 09:03 | XR_ITS ---
PROCEDURE: XR ORBIT BILATERAL MIN 4V CLINICAL INDICATION: R/O METAL IN EYES PRIOR TO MRI History of metal in the eyes COMPARISON: No exams were available for comparison TECHNIQUE: AP views are obtained of the orbits with the patient looking up and down. FINDINGS: No radio opaque foreign bodies evident. IMPRESSION: No radio opaque orbital foreign body identified. Dictated by: Demario Diehl MD 09/14/2020 09:14 Demario Diehl MD in [place] 09/14/2020 09:14
--- NOTE | 2020-09-14 09:36 | CA_ITS ---
APPROVED REPORT EXAM: Comprehensive 2D, Doppler, and color-flow Echocardiogram Ambulance Driver Paramedic: Sofya Gonzalez CRT Ht: 6 ft 0 in Wt: 244lbs BSA: 2.32 BP: 147/79 mmHg Indications: Chest Pain, Diabetes, Hyperlipidemia, Hypertension/HDD, alopecia, CKD, Arrhythmia, CABG, PVD, heart rate varies 43-67. 2D Dimensions LVOT 2.04 cm (M/F) 1.5-2.5 M-Mode Dimensions RVDd 3.88 cm (0.9-2.6) LA Diam 3.83 cm (1.9-4.0) LVDd 5.44 cm (3.5-5.7) Ao Diam 3.83 cm (2.0-3.7) LVDs 3.54 cm (3.5-5.7) IVSd 1.71 cm (0.6-1.1) PWd 1.03 cm (0.6-1.1) EF (Teich) 63.60% FS 34.90% EDV (Teich) 143.70 mL ESV (Teich) 52.30 mL LV Diastology E Decel Time 150.00 (160-240 msec) E/A Ratio 6.68 MED E' 6.00 (< 7 cm/sec) E'/MED E' Ratio 22.15 (>14) LAT E' 8.90 (<10 cm/sec) E/LAT E' Ratio 14.93 (>14) Aortic Valve AO Peak GR. 4.10 mmHg Mitral Valve MV E Max Ck. 133.00 (40-130 cm/s) MV A Velocity 20.00 (40-130 cm/s) E/A Ratio 6.68 MV Decel. Time 150.00 (160-240 ms) MV PHT 44.00 ms Pulmonary Valve PV Peak Velocity 67.00 (50-150 cm/s) Tricuspid Valve TR P. Velocity 220.00 cm/s RAP Estimate 10.00 mmHg RVSP 29.40 mmHg Left Ventricle Left atrium is moderately enlarged, left ventricle is normal size, mild concentric left ventricular hypertrophy, visually estimated ejection fraction 55% with no regional wall motion abnormality, diastolic parameters are inconclusive. Endocardial surfaces are poorly visualized. Right Ventricle Right atrium and right ventricle moderately enlarged with normal contractility. Aortic Valve Aortic valve is thickened and calcified with no aortic stenosis or aortic insufficiency. Mitral Valve Mitral valve has mitral annular calcification, leaflets are minimally thickened, there is no mitral stenosis, there is mild mitral regurgitation. Tricuspid Valve Tricuspid valve is grossly normal, there is mild tricuspid regurgitation. Tricuspid regurgitation jet velocity is inadequate for calculation of the right ventricular systolic pressure. Pulmonic Valve Pulmonic valve is poorly visualized. Great Vessels Aortic root is normal size. Pericardium No significant pericardial effusion noted Conclusion 1. Moderate biatrial enlargement, normal left ventricular size, mild concentric left ventricular hypertrophy, visually estimated ejection fraction 55% with no regional wall motion abnormality, diastolic parameters are inconclusive. Technically difficult study, endocardial surfaces are poorly visualized. 2. Moderately enlarged right ventricle with normal contractility. 3. Mild mitral and tricuspid regurgitation. 4. No significant pericardial effusion noted. Electronically signed by : Cezar Fleming, 09/15/2020 12:39:36
== END ==
PROVIDERS: PCP Family Medicine; Visit Provider Family Medicine
DX: I63.9 Cerebral infarction, unspecified (principal); R29.898 Other symptoms and signs involving the musculoskeletal system; R63.5 Abnormal weight gain; H05.53 Retained (old) foreign body following penetrating wound of bilateral orbits; I48.19 Other persistent atrial fibrillation
CPT/HCPCS: 36415; 70200; 70551; 82565; 84520; 93306

== ENCOUNTER 2020-09-19 10:42 | Outpatient (RCR) | payer MEDICARE, SELFPAY | END 2020-09-19 10:45 | disposition home or self-care (01) | LOC: OT 10:42 | PROVIDERS: PCP Family Medicine; Visit Provider Family Medicine | DX: I63.9 Cerebral infarction, unspecified (principal); R29.898 Other symptoms and signs involving the musculoskeletal system | CPT/HCPCS: 97165 ==

== ENCOUNTER 2023-10-16 22:58 | Emergency (ER) | payer MEDICARE, SELFPAY ==
[2023-10-16 22:58] VITALS: BP 197/94; PULSE 74; RESP 16; TEMP 36.9; O2SAT 98; BMI 32.5
--- NOTE | 2023-10-16 23:36 | ED_ITS ---
Discharge Plan Disposition Patient Disposition: Xfer Other Prescriptions Prescriptions: No Action furosemide 40 mg tablet PO (DME) pen needle, diabetic [BD Celeste 2nd Gen Pen Needle] 32 gauge x 5/32 needle See Rx Instructions .ROUTE .MEDSUPPLY Qty: 1200 Rx Instructions: As directed Humalog KwikPen Insulin 200 unit/mL (3 mL) insulin pen SQ insulin glargine [Lantus Solostar U-100 Insulin] 100 unit/mL (3 mL) insulin pen SQ metoprolol succinate 25 mg tablet extended release 24 hr PO levothyroxine 150 mcg tablet PO pregabalin 150 mg capsule PO Xarelto 20 mg tablet PO acetaminophen [Tylenol Arthritis Pain] 650 mg tablet extended release 650 mg PO Q12H aspirin [Adult Low Dose Aspirin] 81 mg tablet,delayed release (DR/EC) 81 mg PO DAILY (DME) FreeStyle Alia 2 Sensor Kit See Rx Instructions .ROUTE .MEDSUPPLY Qty: 6 0RF Rx Instructions: As directed pravastatin 40 mg tablet PO glipizide 10 mg tablet PO potassium chloride 20 mEq tablet,ER particles/crystals PO fenofibrate 160 mg tablet PO (DME) insulin syringe-needle U-100 1/2 mL 28 gauge x 1/2 syringe See Rx Instructions .ROUTE .MEDSUPPLY Qty: 10 Rx Instructions: As directed levocetirizine 5 mg tablet PO Referrals Follow up/Referrals: Provider,Referral, [Referring] - See instructions Clinical Impressions Clinical Impression: 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 by RN): pt to the ED via EMS for bilateral leg pain and lower back pain. pt reports intermitten chronic back pain over the last year. pt denies any new injury at this time or bowel or bladder incontinence History of Present Illness HPI narrative: 78-year-old male with history of coronary artery disease status post CABG, type 2 diabetes, stroke 3 years ago with residual left upper extremity weakness (on rivaroxaban), prior back surgery presents with acute on chronic back pain and leg symptoms. He reports that his symptoms have an ongoing for 1 to a year, but became severe at approximately 930 PM tonight. He reports that he is having severe low back pain as well as bilateral lower extremity pain throughout the whole leg. He reports it feels different than his typical radicular pain. He reports weakness. He also reports symptoms are bilateral which is unusual for him. He reports that his feet feel cold which is abnormal for him. He has had back pain and lower extremity radicular pain for the last several months, but it became severe and different at 930 tonight. Related Data Home Medications Medication Instructions Recorded Confirmed fenofibrate 160 mg tablet mg PO 11/26/19 07/09/23 glipizide 10 mg tablet mg PO 11/26/19 07/09/23 insulin syringe-needle U-100 1/2 #10 ea 11/26/19 07/09/23 mL 28 gauge x 1/2 levocetirizine 5 mg tablet mg PO 11/26/19 07/09/23 potassium chloride 20 mEq meq PO 11/26/19 07/09/23 tablet,extended release(part/cryst) pravastatin 40 mg tablet PO 11/26/19 07/09/23 acetaminophen 650 mg 650 mg PO Q12H 07/09/23 07/09/23 tablet,extended release (Tylenol Arthritis Pain) aspirin 81 mg tablet,delayed 81 mg PO DAILY 07/09/23 07/09/23 release (Adult Low Dose Aspirin) furosemide 40 mg tablet mg PO 07/09/23 07/09/23 insulin glargine 100 unit/mL (3 unit SQ 07/09/23 07/09/23 mL) subcutaneous pen (Lantus Solostar U-100 Insulin) insulin lispro 200 unit/mL (3 mL) SQ 07/09/23 07/09/23 subcutaneous pen (Humalog KwikPen U-200 Insulin) levothyroxine 150 mcg tablet mcg PO 07/09/23 07/09/23 metoprolol succinate 25 mg mg PO 07/09/23 07/09/23 tablet,extended release 24 hr pen needle, diabetic 32 gauge x #1,200 ea 07/09/23 07/09/23 (BD Celeste 2nd Gen Pen Needle) pregabalin 150 mg capsule mg PO 07/09/23 07/09/23 rivaroxaban 20 mg tablet (Xarelto) mg PO 07/09/23 07/09/23 Previous Rx's Medication Instructions Recorded flash glucose sensor (FreeStyle #6 ea 07/09/23 Alia 2 Sensor kit) Allergies Allergy/AdvReac Type Severity Reaction Status Date / Time No Known Allergies Allergy Verified 07/09/23 14:08 [facility] Disclaimer: The information contained in this section may have been updated after the patient was seen, as this information can be updated by other users. Surgical History (Updated 07/09/23 @ 14:18 by Linn Ribeiro CMA) History of back surgery S/P triple vessel bypass Social History Smoking Status: Current every day smoker tobacco type: cigarettes alcohol intake: current substance use type: denies use current occupational status: retired Travel in the last 8 weeks: None household members: spouse housing: house ROS Obtained: Yes All systems reviewed & no additional complaints except as documented Physical Exam General General appearance: alert Comment: Uncomfortable appearing Head Head exam: atraumatic and normocephalic Eye Eye exam: Present normal appearance, PERRL and EOMI ENT ENT exam: Present normal oropharynx and normal external ear exam Neck Neck exam: Present normal inspection and full ROM Chest Chest inspection: Present normal inspection and symmetric chest wall rise; Absent tenderness Respiratory Respiratory exam: Present normal lung sounds bilaterally; Absent respiratory distress Cardiovascular Cardiovascular exam: Present regular rate and normal rhythm Abdominal Exam Abdominal exam: Present soft and tenderness (Diffuse); Absent distention or guarding Extremities Exam Extremities exam: Present other (No palpable pulses or Doppler signals in the bilateral PT, PT, AT or popliteal. Monophasic signals noted on Doppler exam of the femoral artery bilaterally. Skin is cold and pale with purplish appearance of the tips of the toes. No cap refill. Patient has neurosensory deficits in the feet.) Back Exam Back exam: Present normal inspection; Absent tenderness Neurological Exam Neurological exam: Present alert, oriented X3 and motor sensory deficit (Bilateral lower extremities motor weakness and sensory dysfunction) Psychiatric Psychiatric exam: Present normal affect and normal mood Skin Skin exam: Present other (Bilateral lower extremities pale, mottled, cold) Lymphatic Lymphatic Findings: no adenopathy Medical Decision Making Medical Records Medical records reviewed: Yes I reviewed the patient's medical records. Chris Inquiry Pt receiving controlled substance: No Chris was queried for this patient: No Vital Signs: 10/16/23 22:58 Temperature 98.5 F Temperature Source Oral Pulse Rate [Left Radial] 74 Respiratory Rate 16 Blood Pressure [Right Arm] 197/94 H Blood Pressure Mean [Right Arm] 128 Blood Pressure Source [Right Arm] Automatic Cuff Blood Pressure Position [Right Arm] Sitting 02 Sat by Pulse Oximetry 98 Oxygen Delivery Method Room Air Lab Data Lab results reviewed: Yes I reviewed the patient's lab results. Lab Results 10/16/23 23:54: WBC 9.2, RBC 4.88, Hgb 16.2, Hct 48.5, MCV 99.3 H, MCH 33.2 H, MCHC 33.4, RDW 16.0, Plt Count 185, MPV 9.2, Neut % (Auto) 77.4, Lymph % (Auto) 14.6, [place] % (Auto) 5.6, Eos % (Auto) 0.8, Baso % (Auto) 1.5, Neut # (Auto) 7.1, Lymph # (Auto) 1.4, [place] # (Auto) 0.5, Eos # (Auto) 0.1, Baso # (Auto) 0.1, PT 11.2, INR 1.04, APTT 26.2, Sodium 136, Potassium 4.2, Chloride 100, Carbon Dioxide 24, Anion Gap 16.2 H, BUN 39 H, Creatinine 1.70 H, Estimated Creat Clear 56, Estimated GFR 39 L, Est GFR ( Amer) 48 L, Glucose 348 H, Lactate 1.7, Calcium 11.6 H, Total Bilirubin 1.0, AST 190 H, ALT 66, Alkaline Phosphatase 71, Troponin I 0.06 H, NT-Pro-B Natriuret Pep 2900 H, Total Protein 8.4 H, Albumin 4.4, Globulin 4.0 H, Albumin/Globulin Ratio 1.1 10/16/23 23:54 10/16/23 23:54 Orders (Tests/Meds): ED MEDICATIONS Generic Name Dose Route Start Last Admin Trade Name Freq PRN Reason Stop Dose Admin Heparin Sodium/Dextrose 500 mls @ 40 mls/hr 10/17/23 01:15 10/17/23 01:24 Heparin 25,000 Units In D5w 500ml Premix IV 11/16/23 01:14 40 mls/hr .[id number] NEDA Administration 2,000 UNITS/HR Discontinued Medications Generic Name Dose Route Start Last Admin Trade Name Juveq PRN Reason Stop Dose Admin Heparin Sodium (Porcine) 8,640 unit 10/17/23 01:15 10/17/23 01:22 Heparin Sodium 5,000 Unit/Ml Vial IV 10/17/23 01:16 8,640 unit ONCE ONE Administration Iopamidol 120 ml 10/17/23 00:14 10/17/23 00:15 Iopamidol-370 (76%);100ml Bottle IV 10/17/23 00:15 120 ml ONCE ONE Administration Morphine Sulfate 4 mg 10/16/23 23:43 10/16/23 23:53 Morphine 4mg/Ml Syringe IV 10/16/23 23:44 4 mg ONCE ONE Administration Sodium Chloride 10 ml 10/17/23 00:14 10/17/23 00:15 Sodium Chloride 0.9% 10ml Syr (Rad Only) IV 10/17/23 00:15 10 ml ONCE ONE Administration ORDERS Category Date Time Status CT angio abdomen/femoral Stat Cat Scan 10/16/23 23:43 Completed CTA Chest [CT angio chest - dissection] Stat Cat Scan 10/16/23 23:44 Completed BNP [Brain Natriuretic Peptide] Stat Lab 10/16/23 23:54 Completed CBC w/Auto Diff [Complete Blood Count Auto Diff] Stat Lab 10/16/23 23:54 Completed CMP [Comprehensive Metabolic Panel] Stat Lab 10/16/23 23:54 Completed INR [Prothrombin Time INR] Stat Lab 10/16/23 23:54 Completed Lactic Acid Stat Lab 10/16/23 23:54 Completed PTT Heparin (inpatient only) Stat Lab 10/17/23 01:05 Completed PTT Heparin (inpatient only) Stat Lab 10/17/23 02:30 Ordered Troponin I Q3H Lab 10/16/23 23:54 Completed Troponin I Q3H Lab 10/17/23 02:47 Ordered Medical Decision Narrative: [id number] male with history of coronary artery disease status post CABG, type 2 diabetes, stroke 3 years ago with residual left upper extremity weakness (on rivaroxaban), prior back surgery presents with acute on chronic back pain and leg symptoms. Acute onset of severe back pain and bilateral lower extremity pain started at 9:30 PM on 10/16. History was obtained via conversation with patient, chart review, EMS. On arrival, patient is afebrile, hypertensive, satting appropriately on room air, in extremis secondary to pain. Full physical exam performed and significant for neurovascular dysfunction of the bilateral lower extremities as reported above, Doppler signals present in the femoral arteries, absent in the popliteal and lower. Extremities cold, mottled, no capi llary refill. Has decreased sensation and significant weakness in the bilateral lower extremities. Differential includes but is not limited to aortic thrombus, aortic dissection, chronic peripheral vascular disease. Patient sent emergently to CT scanner for CTA chest abdomen pelvis with runoff. Broad-spectrum labs ordered. On re-evaluation, patient remains stable. Laboratory workup independently interpreted by me and significant for creatinine 1.7, stable from baseline. Hyperglycemia noted, hypercalcemia noted, mildly elevated AST, initial troponin elevated at 0.06. Imaging independently interpreted by me and significant for left common iliac occlusion, severe right iliac stenosis, occlusion of the SFA, no flow below the popliteal bilaterally. Possible cardiac thrombus noted. Large left renal mass noted concerning for malignancy. There is partial occlusion of the right renal artery. multifocal hypodense lesions in the liver and spleen noticed. See radiology read for full review of final results. EKG independently interpreted by me and significant for atrial fibrillation, rate of 72, frequent PVCs, no significant ST elevation.. Patient given emergent heparin bolus and drip. [facility] was consulted and accepted the patient in transfer. Given patient history, exam and workup, patient's presentation most likely represents acute limb ischemia secondary to occlusion of the bilateral iliac arteries, possible cardiac thrombus, possible renal cancer. Procedures Risk/Benefits of Procedure(s) Were Explained: Yes Critical Care Critical Care Time Critical Care Time: Yes Attestation: On 10/16/23, the high probability of a clinically significant, sudden or life threatening deterioration of the following system(s) vascular required my full and direct attention, intervention and personal management. The time I documented below is in addition to time spent performing reported procedures but includes the following listed in this critical care notation. Total Time Total Critical Care Time: 70
--- NOTE | 2023-10-16 23:43 | CT_ITS ---
PROCEDURE INFORMATION: Exam: CTA Abdominal Aorta and Bilateral Lower Extremities (Run-off) With Contrast Exam date and time: 10/17/2023 12:03 AM Age: 78 years old Clinical indication: Abdominal pain; Acute; Additional info: Abd pain, back pain, cold feet TECHNIQUE: Imaging protocol: Computed tomographic angiography of the of the abdominal aorta, pelvis and bilateral lower extremities with contrast. 3D rendering (Not supervised by radiologist): MIP and/or 3D reconstructed images were created by the technologist. Radiation optimization: All CT scans at this facility use at least one of these dose optimization techniques: automated exposure control; mA and/or kV adjustment per patient size (includes targeted exams where dose is matched to clinical indication); or iterative reconstruction. Contrast material: ISOVUE; Contrast volume: 120 ml; Contrast route: INTRAVENOUS (IV); COMPARISON: CT ANGIO CHEST 10/17/2023 12:03 AM FINDINGS: Pulmonary arteries: No central or large peripheral pulmonary emboli. Aorta: There is mild dilation of the ascending aorta. The aorta demonstrates moderate atherosclerotic calcification. Celiac trunk and mesenteric arteries: The SMA and celiac vessels are patent Renal arteries: Multifocal stenoses of the right renal artery proximally and focal segmental occlusion of the right renal artery distally coal image 1003/91. High-grade stenosis left mid renal artery coronal image 1003/87. Right iliac arteries: See Right infrapopliteal arteries finding. Right femoral/popliteal arteries: See Right infrapopliteal arteries finding. Right infrapopliteal arteries: Right lower extremity runoff: There is 60% stenosis right common iliac artery image 5/190. Occlusion of the right superficial femoral artery. Patent right profunda femoris artery. Calcified right superficial femoral artery. Calcified popliteal artery. Calcified right below-knee runoff vessels. No significant reconstitution of the popliteal are below knee runoff vessels. A few geniculate vessels appear opacified. No significant runoff in the right foot. Left iliac arteries: High-grade pre occlusive stenosis proximal left common iliac artery image 5/189. Occlusion of the mid and distal left common iliac artery image 5/197. Occlusion of the left external iliac artery image 5/213. Left femoral/popliteal arteries: Occlusion of the left common femoral artery image 5/245 253. Left lower extremity runoff: Left common femoral artery is occluded. Left profunda femoris and superficial femoral artery segments are occluded. A few scattered branches of the left profunda femoris artery are opacified via collaterals image 5/297. The left popliteal artery is occluded. There is calcific atherosclerosis of the left superficial femoral artery, left profunda femoris artery, left popliteal artery, below-knee vessels. There is focal segmental reconstitution of the above knee popliteal artery coronal image 1007/61. The popliteal artery is occluded again at the joint line. The below knee runoff vessels appear occluded. No significant runoff in the left foot. Left infrapopliteal arteries: See Left femoral/popliteal arteries finding. Heart: Mild cardiomegaly. Filling defect left ventricle image 5/90. Coronary arteries: Prior CABG. Moderate coronary artery calcifications. Liver: There is a 3.7 mm low-density lesion in the left hepatic lobe; too small to adequately characterize image 5/107. Ultrasound may be helpful. There is a 10 mm low-density lesion right hepatic lobe image 5/107. Ultrasound may be helpful to further delineate this finding. There is a 5.4 mm low-density lesion posterior segment right hepatic lobe image 5/130; too small to adequately characterize. Gallbladder and bile ducts: Dependent gallstones. Pancreas: Unremarkable. No mass. No ductal dilation. Spleen: There is a low-density lesion in the spleen measuring 16 mm image 5/111 Adrenal glands: Normal. No mass. Kidneys and ureters: Lobulated kidneys. Left upper pole renal exophytic cyst. Lobulated mass with multifocal areas of enhancement measuring 5.8 cm left inferior pole kidney image 5/159; worrisome for renal cell carcinoma. There is a 4.5 mm nonobstructing inferior pole left renal stone. Stomach and bowel: Unremarkable. No obstruction. No mucosal thickening. Appendix: No evidence of appendicitis. Urinary bladder: Unremarkable. No mass. Reproductive: Moderate prostatomegaly. Intraperitoneal space: Unremarkable. No free air. No significant fluid collection. Lymph nodes: No lymphadenopathy. Bones/joints: Prior sternotomy. The lumbar spine demonstrates marked degenerative changes at multiple levels. Sclerosis of inferior portion of L1, L2 and L3. Although this may represent discogenic sclerosis osseous metastatic disease not entirely excluded. Small sclerotic focus superior endplate of T12 sagittal image 1004/109. Multilevel degenerative change of the thoracic spine with disc space narrowing and discogenic sclerosis. Soft tissues: Bilateral foot and ankle edema. Bilateral fat filled inguinal hernias. IMPRESSION: 1. Filling defect left ventricle image 5/90. Possible thrombus or myxoma. Cardiac MRI may be helpful. 3. Lobulated mass with multifocal areas of enhancement measuring 5.8 cm left inferior pole kidney image 5/159; worrisome for renal cell carcinoma. 4. The aorta demonstrates moderate atherosclerotic calcification. 5. Multifocal stenoses of the right renal artery proximally and focal segmental occlusion of the right renal artery distally coal image 1003/91. 6. High-grade stenosis left mid renal artery coronal image 1003/87. 8. High-grade pre occlusive stenosis proximal left common iliac artery image 5/189. 9. Occlusion of the mid and distal left common iliac artery image 5/197. 10. Occlusion of the left external iliac artery image 5/213. 11. Occlusion of the left common femoral artery image 5/245 253. 12. Right lower extremity runoff: There is 60% stenosis right common iliac artery image 5/190. Occlusion of the right superficial femoral artery. Patent right profunda femoris artery. Calcified right superficial femoral artery. Calcified popliteal artery. Calcified right below-knee runoff vessels. No significant reconstitution of the popliteal are below knee runoff vessels. A few geniculate vessels appear opacified. No significant runoff in the right foot. 13. Left lower extremity runoff: Left common femoral artery is occluded. Left profunda femoris and superficial femoral artery segments are occluded. A few scattered branches of the left profunda femoris artery are opacified via collaterals image 5/297. The left popliteal artery is occluded. There is calcific atherosclerosis of the left superficial femoral artery, left profunda femoris artery, left popliteal artery, below-knee vessels. There is focal segmental reconstitution of the above knee popliteal artery coronal image 1007/61. The popliteal artery is occluded again at the joint line. The below knee runoff vessels appear occluded. No significant runoff in the left foot.
--- NOTE | 2023-10-16 23:44 | CT_ITS ---
PROCEDURE INFORMATION: Exam: CTA Chest With Contrast Exam date and time: 10/17/2023 12:03 AM Age: 78 years old Clinical indication: Pain; Chest pressure; Additional info: Abd pain, back pain cold feet TECHNIQUE: Imaging protocol: Computed tomographic angiography of the chest with contrast. Exam focused on the arteries. 3D rendering (Not supervised by radiologist): MIP and/or 3D reconstructed images were created by the technologist. Radiation optimization: All CT scans at this facility use at least one of these dose optimization techniques: automated exposure control; mA and/or kV adjustment per patient size (includes targeted exams where dose is matched to clinical indication); or iterative reconstruction. Contrast material: ISOVUE; Contrast volume: 120 ml; Contrast route: INTRAVENOUS (IV); COMPARISON: CR CXR2V XR chest 2V 08/28/2018 10:56 AM FINDINGS: Pulmonary arteries: No central or large peripheral pulmonary emboli. Aorta: There is mild dilation of the ascending aorta. The aorta demonstrates moderate atherosclerotic calcification. Celiac trunk and mesenteric arteries: The SMA and celiac vessels are patent Renal arteries: Multifocal stenoses of the right renal artery proximally and focal segmental occlusion of the right renal artery distally coal image 1003/91. High-grade stenosis left mid renal artery coronal image 1003/87. Right infrapopliteal arteries: Right lower extremity runoff: There is 60% stenosis right common iliac artery image 5/190. Occlusion of the right superficial femoral artery. Patent right profunda femoris artery. Calcified right superficial femoral artery. Calcified popliteal artery. Calcified right below-knee runoff vessels. No significant reconstitution of the popliteal are below knee runoff vessels. A few geniculate vessels appear opacified. No significant runoff in the right foot. Left iliac arteries: High-grade pre occlusive stenosis proximal left common iliac artery image 5/189. Occlusion of the mid and distal left common iliac artery image 5/197. Occlusion of the left external iliac artery image 5/213. Left femoral/popliteal arteries: Occlusion of the left common femoral artery image 5/245 253. Left lower extremity runoff: Left common femoral artery is occluded. Left profunda femoris and superficial femoral artery segments are occluded. A few scattered branches of the left profunda femoris artery are opacified via collaterals image 5/297. The left popliteal artery is occluded. There is calcific atherosclerosis of the left superficial femoral artery, left profunda femoris artery, left popliteal artery, below-knee vessels. There is focal segmental reconstitution of the above knee popliteal artery coronal image 1007/61. The popliteal artery is occluded again at the joint line. The below knee runoff vessels appear occluded. No significant runoff in the left foot. Lungs: Unremarkable. No consolidation. No masses. Pleural spaces: Unremarkable. No pneumothorax. No pleural effusion. Heart: Mild cardiomegaly. Filling defect left ventricle image 5/90. Coronary arteries: Prior CABG. Moderate coronary artery calcifications. Lymph nodes: Unremarkable. No enlarged lymph nodes. Liver: There is a 3.7 mm low-density lesion in the left hepatic lobe; too small to adequately characterize image 5/107. Ultrasound may be helpful. There is a 10 mm low-density lesion right hepatic lobe image 5/107. Ultrasound may be helpful to further delineate this finding. There is a 5.4 mm low-density lesion posterior segment right hepatic lobe image 5/130; too small to adequately characterize. Gallbladder and bile ducts: Dependent gallstones. Spleen: There is a low-density lesion in the spleen measuring 16 mm image 5/111 Kidneys and ureters: Lobulated kidneys. Left upper pole renal exophytic cyst. Lobulated mass with multifocal areas of enhancement measuring 5.8 cm left inferior pole kidney image 5/159; worrisome for renal cell carcinoma. There is a 4.5 mm nonobstructing inferior pole left renal stone. Reproductive: Moderate prostatomegaly. Bones/joints: Prior sternotomy. The lumbar spine demonstrates marked degenerative changes at multiple levels. Sclerosis of inferior portion of L1, L2 and L3. Although this may represent discogenic sclerosis osseous metastatic disease not entirely excluded. Small sclerotic focus superior endplate of T12 sagittal image 1004/109. Multilevel degenerative change of the thoracic spine with disc space narrowing and discogenic sclerosis. Soft tissues: Bilateral foot and ankle edema. Bilateral fat filled inguinal hernias. IMPRESSION: 1. Filling defect left ventricle image 5/90. Possible thrombus but cardiac MRI may be helpful to further delineate this finding. 2. There is a 3.7 mm low-density lesion in the left hepatic lobe; too small to adequately characterize image 5/107. Ultrasound may be helpful. 3. There are multiple low-density hepatic lesions described above. Ultrasound may be helpful. 4. Dependent gallstones. 5. Lobulated mass with multifocal areas of enhancement measuring 5.8 cm left inferior pole kidney image 5/159; worrisome for renal cell carcinoma. MRI with gadolinium would be helpful to further delineate this finding 6. There is a 4.5 mm nonobstructing inferior pole left renal stone. 7. Multifocal stenoses of the right renal artery proximally and focal segmental occlusion of the right renal artery distally coal image 1003/91. 8. High-grade stenosis left mid renal artery coronal image 1003/87. 9. There is a low-density lesion in the spleen measuring 16 mm image 5/111 10. High-grade pre occlusive stenosis proximal left common iliac artery image 5/189. 11. Occlusion of the mid and distal left common iliac artery image 5/197. 12. Occlusion of the left external iliac artery image 5/213. 13. Occlusion of the left common femoral artery image 5/245 253. 14. Right lower extremity runoff: There is 60% stenosis right common iliac artery image 5/190. Occlusion of the right superficial femoral artery. Patent right profunda femoris artery. Calcified right superficial femoral artery. Calcified popliteal artery. Calcified right below-knee runoff vessels. No significant reconstitution of the popliteal are below knee runoff vessels. A few geniculate vessels appear opacified. No significant runoff in the right foot. 15. Left lower extremity runoff: Left common femoral artery is occluded. Left profunda femoris and superficial femoral artery segments are occluded. A few scattered branches of the left profunda femoris artery are opacified via collaterals image 5/297. The left popliteal artery is occluded. There is calcific atherosclerosis of the left superficial femoral artery, left profunda femoris artery, left popliteal artery, below-knee vessels. There is focal segmental reconstitution of the above knee popliteal artery coronal image 1007/61. The popliteal artery is occluded again at the joint line. The below knee runoff vessels appear occluded. No significant runoff in the left foot. 16. Bilateral foot and ankle edema. 17. The lumbar spine demonstrates marked degenerative changes at multiple levels. 18. Sclerosis of inferior portion of L1, L2 and L3. Although this may represent discogenic sclerosis osseous metastatic disease not entirely excluded. Small sclerotic focus superior endplate of T12 sagittal image 1004/109. 19. Multilevel degenerative change of the thoracic spine with disc space narrowing and discogenic sclerosis. 20. Other (less critical/noncritical/incidental) findings as above; please refer to the body of report for further details. COMMENTS: Consistent with the [employer]'s Incidental Findings Committee white paper (J Am Elver Radiol 2018): Any incidental renal lesion less than 1 cm or classified as too small to characterize, or any incidental cystic renal lesion characterized as simple-appearing, is likely benign. No follow-up imaging is recommended for these lesions per consensus recommendations based on imaging criteria.
[2023-10-16] MEDS: MORPHINE 4MG/ML SYRINGE 4 MG IV (23:53)
[2023-10-17 00:07] LABS: Basophils # 0.1 K/mm3 (0-0.2); Basophils % 1.5 % (0.1-2.0); Eosinophils # 0.1 K/mm3 (0.0-0.4); Eosinophils % 0.8 % (0.1-12.0); Hematocrit 48.5 % (42.0-52.0); Hemoglobin 16.2 g/dL (14.1-18.0); Lymphocytes # 1.4 K/mm3 (0.7-4.5); Lymphocytes % 14.6 % (10-50); Mean Corpuscular HGB Conc 33.4 g/dL (31.8-35.4); Mean Corpuscular Hemoglobin 33.2 pg (27.0-31.2); Mean Corpuscular Volume 99.3 fl (80-94); Mean Platelet Volume 9.2 fl (7.4-10.4); Monocytes # 0.5 K/mm3 (0.1-1.0); Monocytes % 5.6 % (1.7-9.3); Neutrophils # 7.1 K/mm3 (1.8-7.8); Neutrophils % 77.4 % (37.0-80.0); Platelet Count 185 K/mm3 (142-424); Red Blood Count 4.88 M/mm3 (4.60-6.20); White Blood Count 9.2 K/mm3 (4.8-10.8)
[2023-10-17 00:12] LABS: Chloride 100 mmol/L (98-107)
[2023-10-17 00:13] LABS: INR 1.04 (0.9-1.1); Potassium 4.2 mmoL/L (3.5-5.1); Prothrombin Time 11.2 seconds (10.1-12.5); Sodium 136 mmol/L (136-145)
[2023-10-17 00:15] LABS: Alanine Aminotransferase 66 U/L (12-78); Albumin Level 4.4 g/dl (3.5-5.0); Albumin/Globulin Ratio 1.1 (1.1-1.8); Alkaline Phosphatase 71 U/L (38-126); Anion Gap 16.2 mEq/L (5-15); Aspartate Amino Transferase 190 U/L (17-59); Blood Urea Nitrogen 39 mg/dl (9-20); Calcium 11.6 mg/dl (8.4-10.2); Carbon Dioxide 24 mmol/L (22.0-30.0); Creatinine Clearance Estimated 56 mL/min (50-200); Estimated Glomerular Filt Rate 39 ml/min (>60); GFR (African American) 48 ML/MIN (>60); Glucose 348 mg/dl (74-100); Lactic Acid 1.7 mmol/L (0.7-2.1); Total Protein,Serum 8.4 g/dl (6.3-8.2)
[2023-10-17] MEDS: SODIUM CHLORIDE 0.9% 10ML SYR (RAD ONLY) 10 ML IV (00:15)
[2023-10-17] MEDS: IOPAMIDOL-370 (76%);100ML BOTTLE 120 ML IV (00:15)
--- NOTE | 2023-10-17 00:24 | ECG_ITS ---
APPROVED REPORT Exam: Resting ECG HR:72 bpm ECG Measurements Heart Rate 72 AXES QRSd 93 QRS -34 QT 383 T 30 QTc 407 Conclusion ATRIAL FIBRILLATION WITH ABERRANT CONDUCTION OR VENTRICULAR PREMATURE COMPLEXES INFERIOR MYOCARDIAL INFARCTION , PROBABLY OLD [40+ ms Q WAVE AND/OR ST/T ABNORMALITY IN II/aVF] ANTEROLATERAL MYOCARDIAL INFARCTION , PROBABLY OLD [40+ ms Q WAVE IN I/aVL/V3-V6] ABNORMAL ECG INTERPRETATION BASED ON A DEFAULT AGE OF 41 YEARS UNCONFIRMED REPORT Electronically signed by : Jarek Abad MD 10/18/2023 14:38:10
[2023-10-17 00:25] LABS: NT Pro Brain Natriuretic Pep. 2900 pg/mL (0-450)
[2023-10-17 00:29] LABS: Troponin I 0.06 ng/ml (0.00-0.034)
--- NOTE | 2023-10-17 00:42 | PC.NURSE ---
Addendum entered by Marcos Madrid, EMT-P 10/17/23 00:43: Popliteal* and foot doppler to see if we could find a ulse in which none was found. Original Note: Dr. Whitehead was at bedside and preformed femoral, popiteal
--- NOTE | 2023-10-17 01:06 | PC.NURSE ---
Pt has not had PTT, added to order per Dr Whitehead, will start Heparin gtt after resulted
--- NOTE | 2023-10-17 01:10 | INFXCTL.NOTE ---
Chikis lopez [facility] to adjust Heparin gtt
--- NOTE | 2023-10-17 01:18 | PC.NURSE ---
calling transfer center at this time
--- NOTE | 2023-10-17 01:19 | PC.NURSE ---
Heparin gtt to go ahead and start per Isra Whitehead
[2023-10-17 01:22] LABS: PTT Heparin (inpatient only) 26.2 Seconds (23.6-34.0)
[2023-10-17] MEDS: HEPARIN SODIUM 5,000 UNIT/ML VIAL 8640 UNIT IV (01:22)
[2023-10-17] MEDS: HEPARIN SODIUM,PORCINE/D5W 500 ML 40 UNIT IV (01:24)
--- NOTE | 2023-10-17 01:24 | PC.NURSE ---
[facility] will call back.
[2023-10-17 01:30] VITALS: BP 187/110; PULSE 54; RESP 19; O2SAT 99
--- NOTE | 2023-10-17 01:42 | PC.NURSE ---
in room talking with at this time.
--- NOTE | 2023-10-17 02:04 | PC.NURSE ---
Per Dr Whitehead pt has been accepted at by Dr Mckoy. ER to ER. CR
[2023-10-17 02:18] VITALS: BP 162/91; PULSE 63; RESP 16; O2SAT 99
--- NOTE | 2023-10-17 02:22 | PC.NURSE ---
notified [facility] that pt is ready for transported to
--- NOTE | 2023-10-17 02:47 | PC.NURSE ---
Report called to Dorys Charge @ [facility]
[2023-10-17 02:57] LABS: Troponin I 0.06 ng/ml (0.00-0.034)
[2023-10-17 03:01] VITALS: BP 136/80; PULSE 77; O2SAT 98
[2023-10-17 03:04] LABS: PTT Heparin (inpatient only) 172.8 Seconds (23.6-34.0)
--- NOTE | 2023-10-17 03:10 | PC.NURSE ---
Spoke with Chadwick at [facility] , advised to decrease heparin gtt from 2000 u /hr to 1700 u /hr and repeat PTT at 0410
[2023-10-17] MEDS: HEPARIN SODIUM,PORCINE/D5W 500 ML 34 UNIT IV (03:12)
[2023-10-17] MEDS: MORPHINE 4MG/ML SYRINGE 4 MG IV (03:49)
[2023-10-17 04:09] VITALS: BP 175/85; PULSE 85; RESP 16; TEMP 37; O2SAT 97
[2023-10-17 05:14] LABS: PTT Heparin (inpatient only) > 139.0 Seconds (23.6-34.0)
--- NOTE | 2023-10-17 05:17 | PC.NURSE ---
Called [facility], spoke to Karol Charge that pt PTT 1 hour post heparin gtt at 1700u/hr is greater than 200.
== END 2023-10-17 04:10 | disposition other institution (70) ==
PROVIDERS: Emergency Provider Emergency Medicine; PCP Family Medicine
DX: I21.4 Non-ST elevation (NSTEMI) myocardial infarction (principal); I74.5 Embolism and thrombosis of iliac artery; I48.91 Unspecified atrial fibrillation; I49.3 Ventricular premature depolarization; I25.10 Atherosclerotic heart disease of native coronary artery without angina pectoris; E11.9 Type 2 diabetes mellitus without complications; F17.210 Nicotine dependence, cigarettes, uncomplicated
CPT/HCPCS: 71275; 75635; 80053; 83605; 83880; 84484; 85025; 85610; 85730; 93005; 96374; 96375; 96376; 99291; Q9967